=== PATIENT | female | born 1935 | race Two or more races ===

== ENCOUNTER 2019-07-17 12:56 | Inpatient (IN) | payer MEDICARE, OTHER ==
[~2019-07-17] VITALS: Ht 157.5 cm; Wt 58.1 kg
[2019-07-17 13:19] VITALS: BP 114/43
--- NOTE | 2019-07-17 13:23 | NUR ---
ED Nurse Note: CHIQUITA ISABEL [id number] FROM [facility] UNWITNESSED . PT [facility] CALLED [facility]AL[facility] UNKNOWN HX,MEDS,OR ALLERGIES. PT PLACED ON MONITOR BLOOD SENT TO LAB [facility].
[2019-07-17 13:48] LABS: EOSINOPHILS % (AUTO) 0.8 % (0.0-3.0); HEMATOCRIT 36.9 % (37.0-47.0); HEMOGLOBIN 11.9 G/DL (12.0-16.0); LYMPHOCYTES % (AUTO) 27.1 % (20.0-45.0); MEAN CORPUSCULAR VOLUME 98 FL (80-99); MONOCYTES % (AUTO) 8.9 % (1.0-10.0); NEUTROPHILS % (AUTO) 62.2 % (45.0-75.0); PLATELET COUNT 184 K/UL (150-450); RED BLOOD COUNT 3.76 M/UL (4.20-5.40); RED CELL DISTRIBUTION WIDTH 12.3 % (11.6-14.8); WHITE BLOOD COUNT 5.7 K/UL (4.8-10.8)
--- NOTE | 2019-07-17 13:55 | Emergency Room Report ---
History of Present Illness General Chief Complaint: Syncope Source: Patient, Medical Record, EMS Present Illness HPI Patient is 83-year-old female who presented after possible syncopal episode. Patient was found lying on a sidewalk. She apparently stays in a assisted living. Patient was noted to be found on the ground and was unable to get up. Patient reports having some pain to the back of her head. She denies any extremity pain. History is limited by poor historian. Patient does speak Pashto however she speaks primarily Cantonese.She was noted to have occipital hematoma by EMS.She does not recall how she fell. Past medical history is unknown and medications are unknown Allergies: Coded Allergies: No Known Allergies (Unverified , 07/17/19) Patient History Past Medical History: see triage record Past Surgical History: unable to obtain Pertinent Family History: unable to obtain Now: No Reviewed Nursing Documentation: PMH: Agreed; PSxH: Agreed Nursing Documentation-PMH Past Medical History: No History, Except For Hx Hypertension: Yes Review of Systems All Other Systems: limited - Review of systems: Review systems is limited by patient's being a poor historian Physical Exam Vital Signs Date Time Temp Pulse Resp B/P (MAP) Pulse Ox O2 Delivery O2 Flow Rate FiO2 07/17/19 12:55 70 21 86/44 (58) 100 Room Air 07/17/19 13:19 97.4 General Appearance: no apparent distress, alert, Chronically Ill Eyes: bilateral eye PERRL ENT: normal pharynx Neck: limited range of motion Respiratory: lungs clear, normal breath sounds Cardiovascular #1: no edema Gastrointestinal: normal inspection, soft Neurologic: normal inspection, alert, responsive, payment rep III-XII nml as tested, motor strength/tone normal Medical Decision Making Diagnostic Impression: Primary Impression: Generalized weakness Additional Impressions: Dehydration Syncope Head contusion Lactic acid acidosis ER Course Patient is an 83-year-old female presented for increased generalized weakness. Differential diagnosis include was not limited to sepsis, dehydration, heatstroke among others. Because of complexity of patient's case laboratory testing and imaging studies were ordered. Patient was noted to have some evidence of external trauma to her head. There is a evident scalp hematoma noted. CT the head was ordered due to patient's recent trauma. His chest x- ray one view interpreted by me showed normal cardiac size without evident infiltrate. Patient was noted to be somewhat confused. Is unclear if this is the patient's baseline or not. Patient was given IV antibiotics after blood cultures were obtained.She was started on IV fluids. EKG interpreted by me showed normal sinus rhythm without any acute ST or T wave changes. Patient was noted to have improvement in her lactic acid level over time and on reassessment she was noted to have improved cap refill. Patient was discussed with Dr. Knight for inpatient management due to panel physician Laboratory Tests Test 07/17/19 13:14 07/17/19 14:35 07/17/19 15:39 07/17/19 21:40 White Blood Count 5.7 K/UL (4.8-10.8) Red Blood Count 3.76 M/UL (4.20-5.40) L Hemoglobin 11.9 G/DL (12.0-16.0) L Hematocrit 36.9 % (37.0-47.0) L Mean Corpuscular Volume 98 FL (80-99) Mean Corpuscular Hemoglobin 31.6 PG (27.0-31.0) H Mean Corpuscular Hemoglobin Concent 32.3 G/DL (32.0-36.0) Red Cell Distribution Width 12.3 % (11.6-14.8) Platelet Count 184 K/UL (150-450) Mean Platelet Volume 6.2 FL (6.5-10.1) L Neutrophils (%) (Auto) 62.2 % (45.0-75.0) Lymphocytes (%) (Auto) 27.1 % (20.0-45.0) Monocytes (%) (Auto) 8.9 % (1.0-10.0) Eosinophils (%) (Auto) 0.8 % (0.0-3.0) Basophils (%) (Auto) 1.0 % (0.0-2.0) Prothrombin Time 10.3 SEC (9.30-11.50) Prothrombin Time INR 1.0 (0.9-1.1) PTT 26 SEC (23-33) Sodium Level 142 MMOL/L (136-145) Potassium Level 3.8 MMOL/L (3.5-5.1) Chloride Level 107 MMOL/L (98-107) Carbon Dioxide Level 25 MMOL/L (21-32) Anion Gap 10 mmol/L (5-15) Blood Urea Nitrogen 25 mg/dL (7-18) H Creatinine 1.3 MG/DL (0.55-1.30) Estimate Glomerular Filtration Rate mL/min (>60) Glucose Level 182 MG/DL (74-106) H Lactic Acid Level 3.50 mmol/L (0.4-2.0) H 2.10 mmol/L (0.66-2.22) Calcium Level 8.8 MG/DL (8.5-10.1) Total Bilirubin 0.7 MG/DL (0.2-1.0) Aspartate Amino Transferase (AST) 20 U/L (15-37) Alanine Aminotransferase (ALT) 15 U/L (12-78) Alkaline Phosphatase 76 U/L (46-116) Troponin I 0.000 ng/mL (0.000-0.056) 0.000 ng/mL (0.000-0.056) Total Protein 7.1 G/DL (6.4-8.2) Albumin 3.5 G/DL (3.4-5.0) Globulin 3.6 g/dL Albumin/Globulin Ratio 1.0 (1.0-2.7) Urine Color Yellow Urine Appearance Slightly cloudy Urine pH 6 (4.5-8.0) Urine Specific [place] 1.015 (1.005-1.035) Urine Protein 2+ (NEGATIVE) H Urine Glucose (UA) 3+ (NEGATIVE) H Urine Ketones Negative (NEGATIVE) Urine Blood Negative (NEGATIVE) Urine Nitrite Negative (NEGATIVE) Urine Bilirubin Negative (NEGATIVE) Urine Urobilinogen 1 MG/DL (0.0-1.0) H Urine Leukocyte Esterase Negative (NEGATIVE) Urine RBC 0 /HPF (0 - 2) Urine WBC 2-4 /HPF (0 - 2) Urine Squamous Epithelial Cells Many /LPF (NONE/OCC) H Urine Bacteria Few /HPF (NONE) Urine Mucus Moderate /LPF (NONE/OCC) H Pro-B-Type Natriuretic Peptide 86 pg/mL (0-125) Test 07/18/19 03:40 White Blood Count 6.0 K/UL (4.8-10.8) Red Blood Count 3.80 M/UL (4.20-5.40) L Hemoglobin 12.1 G/DL (12.0-16.0) Hematocrit 36.8 % (37.0-47.0) L Mean Corpuscular Volume 97 FL (80-99) Mean Corpuscular Hemoglobin 31.8 PG (27.0-31.0) H Mean Corpuscular Hemoglobin Concent 32.9 G/DL (32.0-36.0) Red Cell Distribution Width 12.0 % (11.6-14.8) Platelet Count 170 K/UL (150-450) Mean Platelet Volume 6.9 FL (6.5-10.1) Neutrophils (%) (Auto) 64.6 % (45.0-75.0) Lymphocytes (%) (Auto) 25.3 % (20.0-45.0) Monocytes (%) (Auto) 7.1 % (1.0-10.0) Eosinophils (%) (Auto) 2.2 % (0.0-3.0) Basophils (%) (Auto) 0.8 % (0.0-2.0) Sodium Level 145 MMOL/L (136-145) Potassium Level 4.0 MMOL/L (3.5-5.1) Chloride Level 109 MMOL/L (98-107) H Carbon Dioxide Level 24 MMOL/L (21-32) Anion Gap 13 mmol/L (5-15) Blood Urea Nitrogen 15 mg/dL (7-18) Creatinine 0.8 MG/DL (0.55-1.30) Estimate Glomerular Filtration Rate mL/min (>60) Glucose Level 148 MG/DL (74-106) H Hemoglobin A1c 7.0 % (4.3-6.0) H Calcium Level 8.8 MG/DL (8.5-10.1) Troponin I 0.000 ng/mL (0.000-0.056) Pro-B-Type Natriuretic Peptide 144 pg/mL (0-125) H Triglycerides Level 135 MG/DL (30-150) Cholesterol Level 208 MG/DL (< 200) H LDL Cholesterol 119 mg/dL (<100) H HDL Cholesterol 60 MG/DL (40-60) Cholesterol/HDL Ratio 3.5 (3.3-4.4) Thyroid Stimulating Hormone (TSH) 0.805 uiU/mL (0.358-3.740) EKG Diagnostic Results Rate: normal Rhythm: NSR ST Segments: no acute changes Last Vital Signs Date Time Temp Pulse Resp B/P (MAP) Pulse Ox O2 Delivery O2 Flow Rate FiO2 07/17/19 13:19 97.4 60 14 114/43 96 Room Air Status: improved Disposition: ADMITTED INPATIENT Condition: Stable Tyshawn Ascencio MD Jul 17, 2019 13:55
[2019-07-17 14:39] LABS: ANION GAP 10 mmol/L (5-15); BLOOD UREA NITROGEN 25 mg/dL (7-18); CALCIUM 8.8 MG/DL (8.5-10.1); CARBON DIOXIDE 25 MMOL/L (21-32); CHLORIDE 107 MMOL/L (98-107); CREATININE 1.3 MG/DL (0.55-1.30); POTASSIUM 3.8 MMOL/L (3.5-5.1); SODIUM 142 MMOL/L (136-145)
--- NOTE | 2019-07-17 14:40 | NUR ---
ED Nurse Note: urine sent
[2019-07-17 14:43] LABS: ALANINE AMINOTRANSFERASE 15 U/L (12-78); ALBUMIN 3.5 G/DL (3.4-5.0); ALKALINE PHOSPHATASE 76 U/L (46-116); ASPARTATE AMINO TRANSFERASE 20 U/L (15-37); BILIRUBIN,TOTAL 0.7 MG/DL (0.2-1.0)
[2019-07-17] MEDS ORDERED: Piperacillin/Tazobactam 3.375 GM in NS 110 ML IVPB ONE (15:00)
--- NOTE | 2019-07-17 15:10 | Diagnostic Imaging Report ---
EXAM: CT Abdomen and Pelvis Without Intravenous Contrast CLINICAL HISTORY: PAIN TECHNIQUE: Axial computed tomography images of the abdomen and pelvis without intravenous contrast. Sagittal and coronal reformatted images were created and reviewed. CTDI is 11.66 mGy and DLP is 614 mGy-cm. One or more of the following dose reduction techniques were used: automated exposure control, adjustment of the mA and/or kV according to patient size, use of iterative reconstruction technique. COMPARISON: No relevant prior studies available. FINDINGS: Lung bases: Unremarkable. No consolidation. No effusions. ABDOMEN: Liver: Unremarkable. Gallbladder and bile ducts: Status post cholecystectomy. No ductal dilation. Pancreas: Unremarkable. No ductal dilation. Spleen: Unremarkable. No splenomegaly. Adrenals: Unremarkable. No mass. Kidneys and ureters: Unremarkable. No obstructing stones. No hydronephrosis. Stomach and bowel: Nonspecific segmental wall thickening involving the distal 5-6 cm of the rectum. Mild diverticulosis in the descending and sigmoid colon without adjacent inflammatory change. No obstruction. PELVIS: Appendix: No findings to suggest acute appendicitis. Bladder: Unremarkable. No stones. Reproductive: Unremarkable as visualized. ABDOMEN and PELVIS: Intraperitoneal space: Unremarkable. No free air. No significant fluid collection. Bones/joints: Multilevel degenerative changes throughout the visualized spine with disc space loss and endplate osteophytes. No acute fracture. No dislocation. Soft tissues: Unremarkable. Vasculature: Atherosclerosis throughout the abdominal aorta and its proximal branches. No abdominal aortic aneurysm. Lymph nodes: No enlarged perirectal lymph nodes identified. IMPRESSION: 1. Nonspecific segmental wall thickening involving the distal 5-6 cm of the rectum. This may be related to proctocolitis versus a rectal mass. Recommend either colonoscopic evaluation or follow-up CT with IV and oral and rectal contrast. 2. No enlarged perirectal lymph nodes identified. 3. Mild diverticulosis in the descending and sigmoid colon without adjacent inflammatory change.
--- NOTE | 2019-07-17 15:14 | Diagnostic Imaging Report ---
EXAM: CT Head Without Intravenous Contrast CLINICAL HISTORY: PAIN TECHNIQUE: Axial computed tomography images of the head/brain without intravenous contrast. CTDI is 70.38 mGy and DLP is 1396.98 mGy-cm. One or more of the following dose reduction techniques were used: automated exposure control, adjustment of the mA and/or kV according to patient size, use of iterative reconstruction technique. Coronal reformatted images were created and reviewed. COMPARISON: No relevant prior studies available. FINDINGS: Brain: Generalized parenchymal volume loss, likely age-related. Periventricular white matter hypodensities. 5 mm hypodensity in the right caudate nucleus. No evidence of acute intracranial hemorrhage. No mass effect or midline shift. Ventricles: Unremarkable. No ventriculomegaly. Bones/joints: Unremarkable. No acute fracture. Soft tissues: Unremarkable. Sinuses: Unremarkable as visualized. No acute sinusitis. Mastoid air cells: Unremarkable as visualized. No mastoid effusion. Vascular: Atherosclerotic calcifications of bilateral vertebral arteries and the cavernous portions of bilateral ICAs. IMPRESSION: 1. No acute intracranial findings. 2. 5 mm hypodensity in the right caudate nucleus, likely a remote lacunar infarct. 3. Periventricular white matter hypodensities, likely related to chronic small vessel disease changes. 4. Generalized cerebral parenchymal volume loss, likely age-related.
--- NOTE | 2019-07-17 15:17 | Diagnostic Imaging Report ---
EXAM: CT Cervical Spine Without Intravenous Contrast CLINICAL HISTORY: PAIN TECHNIQUE: Axial computed tomography images of the cervical spine without intravenous contrast. Sagittal and coronal reformatted images were created and reviewed. CTDI is 8.47 mGy and DLP is 193.99 mGy-cm. One or more of the following dose reduction techniques were used: automated exposure control, adjustment of the mA and/or kV according to patient size, use of iterative reconstruction technique. COMPARISON: No relevant prior studies available. FINDINGS: Vertebrae: Unremarkable. No visible displaced fracture. Cervical body heights are preserved. The atlantodens interval appears unremarkable. Discs/spinal canal/neural foramina: Multilevel degenerative changes throughout the cervical spine, with disc space loss, endplate ossified, and facet and uncovertebral arthrosis. Associated varying degrees of osseous stenosis of the central canal and neural foramina. Soft tissues: Unremarkable. IMPRESSION: 1. No evidence of acute fracture or malalignment in the cervical spine. 2. Multilevel degenerative changes throughout the cervical spine.
[2019-07-17 15:21] LABS: APPEARANCE,URINE SLIGHTLY CLOUDY; BILIRUBIN, URINE NEGATIVE (NEGATIVE); GLUCOSE, URINE (UA) 3+ (NEGATIVE); KETONES,URINE NEGATIVE (NEGATIVE); LEUKOCYTE ESTERASE ,URINE NEGATIVE (NEGATIVE); NITRITE,URINE NEGATIVE (NEGATIVE); PH,URINE 6 (4.5-8.0); PROTEIN,URINE 2+ (NEGATIVE); UROBILINOGEN,URINE 1 MG/DL (0.0-1.0)
[2019-07-17 15:29] VITALS: BP 110/54
[2019-07-17 15:29] LABS: COLOR,URINE YELLOW
--- NOTE | 2019-07-17 15:29 | NUR ---
ED Nurse Note: REPORT GIVEN TO HOLA CORTES
--- NOTE | 2019-07-17 15:37 | NUR ---
ED Nurse Note: reflex drawn and sent
--- NOTE | 2019-07-17 15:44 | NUR ---
ED Nurse Note: abx up infusing. pt up to floor with charge and tech
--- NOTE | 2019-07-17 15:50 | NUR ---
NURSE NOTES: Received bedside report from Pastora Robin RN. Pt. transferred from [facility] to bed. A/O x 3-4 forgetful at times. No sign of distress. Denies pain at present. IV site at right FA #[id number]. in placed patent/intact. Body check done with CN. Noted skin intact. Bed in low position, locked. Call light within reach. Will cont. to monitor.
--- NOTE | 2019-07-17 15:50 | NUR ---
Patient received at 1550 not registered at SDU. Called [facility] and Oral And Maxillofacial Surgeon times 3 times and patient was admitted and registered exactly at SDU 1858.
[2019-07-17 16:00] VITALS: BP 144/70
--- NOTE | 2019-07-17 16:04 | Diagnostic Imaging Report ---
EXAM: XR Chest, 1 View CLINICAL HISTORY: Shortness of breath TECHNIQUE: Frontal view of the chest. COMPARISON: No relevant prior studies available. FINDINGS: Lungs: Mildly increased interstitial markings. The lungs are otherwise clear without focal consolidation. Pleural space: Unremarkable. The costophrenic angles are sharp. No visible pneumothorax. Heart: Mild cardiomegaly. Mediastinum: Unremarkable. Bones/joints: Unremarkable. Vasculature: Atherosclerotic calcifications are noted within the aortic arch. Tubes, lines and devices: Telemetry leads overlie the thorax. IMPRESSION: 1. Mildly increased interstitial markings. This is nonspecific but may suggest mild pulmonary vascular congestion or a mild interstitial pneumonitis. No focal consolidation. 2. Mild cardiomegaly.
--- NOTE | 2019-07-17 19:20 | NUR ---
NURSE NOTES: Received patient from HOLA Bautista. Will contact Dr. Knight for admission orders and initiate plan of care. Patient is stable.
--- NOTE | 2019-07-17 19:23 | NUR ---
HAND-OFF: Report given to Sanchez RN. Pt. remain stable.
--- NOTE | 2019-07-17 19:38 | NUR ---
NURSE NOTES: Call [facility] to attempt to obtain information about patient. Security states that all offices are closed by 1700 and that only securities are there at the moment until the next morning and to call back then. Will continue to follow up.
[2019-07-17 20:00] VITALS: BP 157/72
[2019-07-17] MEDS ORDERED: HYDROcodone/Acetamin 5/325 tab ORAL PRN (20:30)
--- NOTE | 2019-07-17 21:07 | Cardiology Progress Note ---
Assessment/Plan Assessment/Plan The patient is seen and examined, full consult note is dictated. Objective Last 24 Hour Vital Signs Date Time Temp Pulse Resp B/P (MAP) Pulse Ox O2 Delivery O2 Flow Rate FiO2 07/17/19 20:00 97.9 72 16 157/72 (100) 99 07/17/19 16:33 Room Air 07/17/19 16:00 95.6 68 20 144/70 (94) 97 07/17/19 15:55 122/86 07/17/19 15:29 98.6 60 16 110/54 97 Room Air 07/17/19 13:19 97.4 60 14 114/43 96 Room Air 07/17/19 12:55 70 21 86/44 (58) 100 Room Air Laboratory Tests Test 07/17/19 13:14 07/17/19 14:35 07/17/19 15:39 White Blood Count 5.7 K/UL (4.8-10.8) Red Blood Count 3.76 M/UL (4.20-5.40) L Hemoglobin 11.9 G/DL (12.0-16.0) L Hematocrit 36.9 % (37.0-47.0) L Mean Corpuscular Volume 98 FL (80-99) Mean Corpuscular Hemoglobin 31.6 PG (27.0-31.0) H Mean Corpuscular Hemoglobin Concent 32.3 G/DL (32.0-36.0) Red Cell Distribution Width 12.3 % (11.6-14.8) Platelet Count 184 K/UL (150-450) Mean Platelet Volume 6.2 FL (6.5-10.1) L Neutrophils (%) (Auto) 62.2 % (45.0-75.0) Lymphocytes (%) (Auto) 27.1 % (20.0-45.0) Monocytes (%) (Auto) 8.9 % (1.0-10.0) Eosinophils (%) (Auto) 0.8 % (0.0-3.0) Basophils (%) (Auto) 1.0 % (0.0-2.0) Prothrombin Time 10.3 SEC (9.30-11.50) Prothromb Time International Ratio 1.0 (0.9-1.1) Activated Partial Thromboplast Time 26 SEC (23-33) Sodium Level 142 MMOL/L (136-145) Potassium Level 3.8 MMOL/L (3.5-5.1) Chloride Level 107 MMOL/L (98-107) Carbon Dioxide Level 25 MMOL/L (21-32) Anion Gap 10 mmol/L (5-15) Blood Urea Nitrogen 25 mg/dL (7-18) H Creatinine 1.3 MG/DL (0.55-1.30) Estimat Glomerular Filtration Rate mL/min (>60) Glucose Level 182 MG/DL (74-106) H Lactic Acid Level 3.50 mmol/L (0.4-2.0) H 2.10 mmol/L (0.66-2.22) Calcium Level 8.8 MG/DL (8.5-10.1) Total Bilirubin 0.7 MG/DL (0.2-1.0) Aspartate Amino Transf (AST/SGOT) 20 U/L (15-37) Alanine Aminotransferase (ALT/SGPT) 15 U/L (12-78) Alkaline Phosphatase 76 U/L (46-116) Troponin I 0.000 ng/mL (0.000-0.056) Total Protein 7.1 G/DL (6.4-8.2) Albumin 3.5 G/DL (3.4-5.0) Globulin 3.6 g/dL Albumin/Globulin Ratio 1.0 (1.0-2.7) Urine Color Yellow Urine Appearance Slightly cloudy Urine pH 6 (4.5-8.0) Urine Specific [place] 1.015 (1.005-1.035) Urine Protein 2+ (NEGATIVE) H Urine Glucose (UA) 3+ (NEGATIVE) H Urine Ketones Negative (NEGATIVE) Urine Blood Negative (NEGATIVE) Urine Nitrite Negative (NEGATIVE) Urine Bilirubin Negative (NEGATIVE) Urine Urobilinogen 1 MG/DL (0.0-1.0) H Urine Leukocyte Esterase Negative (NEGATIVE) Urine RBC 0 /HPF (0 - 2) Urine WBC 2-4 /HPF (0 - 2) Urine Squamous Epithelial Cells Many /LPF (NONE/OCC) H Urine Bacteria Few /HPF (NONE) Urine Mucus Moderate /LPF (NONE/OCC) H Augustin Roldan MD Jul 17, 2019 21:07
[2019-07-17] MEDS: D5NS 1,000 ML IV SCH (21:35)
[2019-07-17] MEDS: Heparin 5000 units/ml inj SUBQ SCH (21:37)
[2019-07-17] MEDS ORDERED: Vancomycin 1gm/D5W 275ml IVPB ONE ×2 (22:00)
--- NOTE | 2019-07-17 23:45 | Consultation ---
DATE OF CONSULTATION: 07/17/2019 CARDIOLOGY CONSULTATION CONSULTING PHYSICIAN: Augustin Roldan M.D. REFERRING PHYSICIAN: Jacques Knight M.D. REASON FOR CONSULTATION: Management of syncope. HISTORY OF PRESENT ILLNESS: The patient is a very pleasant 83-year-old ____ lady who apparently sustained an episode of syncope and was brought in to this facility for further evaluation and management of this condition. She was found lying on the sidewalk of the assisted living facility and was unable to get up. Apparently, the patient hit back of her head, leading to a hematoma. In the emergency department, initial blood pressure was 86/44 millimeter of mercury and pulse rate of 70. A 12-lead electrocardiogram was significant for sinus rhythm, but no acute ischemic feature was found. QT interval was within normal limits at 444 milliseconds. Initial laboratory finding was essentially confirming possible prerenal azotemia due to hypovolemia. There is slight hypernatremia. It is not clear the blood pressure medication that the patient uses at the assisted living facility. Her initial troponin I level was 0. The patient was admitted to [facility] for further evaluation and management of syncope. Cardiology consultation was made at request of Dr. Knight. PAST MEDICAL HISTORY: Hypertension. PAST SURGICAL HISTORY: None. ALLERGIES: No known drug allergies. REVIEW OF SYSTEMS: HEENT: Denies any headache, although a bump at the back of her head is tender. No blurred vision or diplopia. CONSTITUTIONAL: Denies any fever, chills, night sweats, or weight loss. CARDIOVASCULAR: Denies any chest pain, shortness breath, PND, orthopnea, or leg swelling. PULMONARY: Denies any cough, hemoptysis, or wheezing. GASTROINTESTINAL: Denies any nausea, vomiting, diarrhea, constipation, abdominal pain, or GI bleed. GENITOURINARY: Denies any hematuria, dysuria, or incontinence. CARDIOVASCULAR: Denies any chest pain, shortness of breath, PND, or orthopnea. She had loss of consciousness, which was unwitnessed. NEUROLOGY: Denies any signs of lateralization, sensory deficit, altered speech, or motor dysfunction. MEDICATIONS: List of medication, she apparently on antihypertensive medication. The name of this is unknown at this time. SOCIAL HISTORY: Denies any tobacco, alcohol, or illicit drug use. PHYSICAL EXAMINATION: VITAL SIGNS: Blood pressure at time of arrival to the hospital was 86/44, respirations 21, pulse of 70, temperature 97.4 degrees Fahrenheit, and O2 saturation 100% on room air. GENERAL: This is a very unfortunate 83-year-old female, seen in Cardiology, in no apparent respiratory distress. Alert and oriented x4. HEENT: Atraumatic and normocephalic. Anicteric. Pupils are equal, round, and reactive to light and accommodation. Extraocular muscles intact. NECK: JVP less than 5 cm. No carotid bruit. Carotid upstroke is 2+ bilaterally. CARDIOVASCULAR: Normal S1 and S2. Regular rate and rhythm. No murmurs, gallops, or rubs. PMI is at fourth intercostal space in the midclavicular line. LUNGS: Clear to auscultation bilaterally. ABDOMEN: Soft, nontender, and nondistended. No hepatosplenomegaly, Positive bowel sounds. EXTREMITIES: No evidence of edema, clubbing, or cyanosis. LABORATORY FINDINGS: Sodium 142, potassium 3.8, chloride 107, bicarbonate 25, BUN 25, creatinine 1.3, glucose 192, calcium 8.8, and troponin I 0. WBC 5.7, hemoglobin 11.9, hematocrit 36.9, and platelet count is 184,000. INR is 1.0. CT of the head showed possible remote lacune infarct in the right caudate nucleus, otherwise no acute intracranial hemorrhage or mass effect. Also, there is periventricular white matter hypodensity due to chronic small vessel disease. Chest x-ray, mild increased interstitial marking, nonspecific, might suggest mild pulmonary vascular congestion or interstitial pneumonitis, mild cardiomegaly. ASSESSMENT/PLAN: The patient is a very unfortunate 83-year-old female, seen in cardiology consultation. 1. Syncope, unwitnessed. ____ to have the hypovolemia as the culprit for this in view of the elevated BUN and creatinine ratio at about 20. The patient requires to be well-hydrated. We will order brain natriuretic peptide to rule out congestive heart failure in view of the result of chest x-ray which showed some evidence of increased interstitial marking. I would wait for the results of 2D echocardiography which will be done tomorrow morning. I would like to obtain orthostatic vitals as well as carotid duplex study. 2. and diagnostic decision will be based on results of the above test. 3. History of hypertension. We would like to place a hold on possible diuretics. 4. We will continue managing the blood pressure with low-dose amlodipine. I would like to thank Dr. Knight for allowing me to participate in the care of this patient. Augustin Roldan M.D. DR: JOO JOB#: [id number] CC:
[2019-07-18] VITALS: BP 107/75
[2019-07-18 04:00] VITALS: BP 144/78
--- NOTE | 2019-07-18 04:13 | NUR ---
NURSE NOTES: Patient is asking for food and is currently on a NPO diet; ST eval are not usually done on a holiday weekday. Patient is alert and oriented x3-4. Was able to question about home diet to assess whether or not she is able to have food during the day. She states that is able to chew solid meat, mashed foods are too mushy and chopped foods are too chewy. She also states that she is able to eat solid vegetables and meat like a chicken leg. Will suggest a diet change to Dr. Knight in the morning.
[2019-07-18 05:23] LABS: BASOPHILS % (AUTO) 0.8 % (0.0-2.0); EOSINOPHILS % (AUTO) 2.2 % (0.0-3.0); HEMATOCRIT 36.8 % (37.0-47.0); HEMOGLOBIN 12.1 G/DL (12.0-16.0); LYMPHOCYTES % (AUTO) 25.3 % (20.0-45.0); MEAN CORPUSCULAR VOLUME 97 FL (80-99); MONOCYTES % (AUTO) 7.1 % (1.0-10.0); NEUTROPHILS % (AUTO) 64.6 % (45.0-75.0); PLATELET COUNT 170 K/UL (150-450)
[2019-07-18 06:15] LABS: ANION GAP 13 mmol/L (5-15); BLOOD UREA NITROGEN 15 mg/dL (7-18); CALCIUM 8.8 MG/DL (8.5-10.1); CARBON DIOXIDE 24 MMOL/L (21-32); CHLORIDE 109 MMOL/L (98-107); CHOLESTEROL 208 MG/DL (< 200); CREATININE 0.8 MG/DL (0.55-1.30); HDL CHOLESTEROL 60 MG/DL (40-60); SODIUM 145 MMOL/L (136-145); TRIGLYCERIDES 135 MG/DL (30-150)
--- NOTE | 2019-07-18 07:11 | NUR ---
HAND-OFF: Report given to Kylie SIMENTAL.
--- NOTE | 2019-07-18 07:15 | NUR ---
NURSE NOTES: Received bedside report from Sanchez RN. Pt. in bed, awake, a/o x 3-4. No sign of distress. On R.A. Denies pain at present. IV site at right FA #[id number]. in placed patent/intact. Pleasant and cooperative. Fall precaution observed. Bed alarm on. Bed in low position, locked. Call light within reach. Will cont. to monitor.
[2019-07-18 08:00] VITALS: BP 133/61
[2019-07-18] MEDS: D5NS 1,000 ML IV SCH ×2 (09:12→21:13)
[2019-07-18] MEDS: Heparin 5000 units/ml inj SUBQ SCH ×2 (09:15→21:00)
--- NOTE | 2019-07-18 11:20 | NUR ---
NURSE NOTES: Pt. called and RN went to see the pt. And pt. showed RN that she pulled out IV and pt. told RN "no more". And pt telling RN she is going home. Noted pt. pulled out cardiac care nurse and pt. dressed up. And pt. started to grab her walker. RN followed pt.
[2019-07-18] MEDS: NovoLOG Insulin Flexpen SUBQ SCH ×3 (11:30→21:00)
--- NOTE | 2019-07-18 12:00 | NUR ---
NURSE NOTES: Pt. still continue to wander around and RN cont. to follow pt. Pt. refused accu-check. Security present also.
--- NOTE | 2019-07-18 12:30 | NUR ---
NURSE NOTES: Called Dr. Knight notify him about pt. getting agitated, hitting RN and wandering around and got orders for psych consult (Dr. Torres) and 1:1 sitter. Notify CN and warehouse stocker.
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
--- NOTE | 2019-07-18 14:00 | NUR ---
NURSE NOTES: [facility] and spoke with Estephania (professional fighter). And told RN if she will get d/c back pt. ok to come back at the facility and Estephania said she is on room #1704. And address is [address] [place] [id number]. Informed CN and transfer and pumphouse operator.
--- NOTE | 2019-07-18 14:11 | Consultation ---
Consult Note Consult Note NEUROLOGY CONSULTATION: Full note dictated #[id number] 83-year-old, right-handed, [place] Islander lady who does have a past history of hypertension and diabetes mellitus. On 07/17/2019 she was found outside her assisted living facility unconscious. She had apparently passed out and was unable to get up on her own. ON EXAM: Problems with orientation, memory, VSF, HCF, language. Mild right NLF flat. Globally absent DTRs Minimally wide based stance and gait. IMPRESSION: Syncopal episode due to volume depletion. Underlying dementia. 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 REC: Keep well hydrated. BP/BS control. W/U for treatable causes of cognitive dysfunction. Observe. Donovan Shannon M.D., M.S.P.H. Donovan Shannon MD Jul 18, 2019 14:11
--- NOTE | 2019-07-18 16:30 | History and Physical Report ---
DATE OF ADMISSION: 07/17/2019 SOURCE OF INFORMATION: Patient and EMR. HISTORY OF PRESENT ILLNESS: The patient is an 83-year-old female. The patient reported that [facility] The patient reported that she passed out. She does not have any recollection about the incident. Initial evaluation in the emergency room shows the patient had a low blood pressure of systolic blood pressure of 80. The patient denies having any chest pain, any shortness of breath, any diarrhea, constipation, fever, or chills. REVIEW OF SYSTEMS: All 14 elements of review of systems reviewed. Pertinent positive and negative as above. HOME MEDICATIONS: Could not be obtained. CURRENT HOSPITAL MEDICATIONS: Including vancomycin, amlodipine. SOCIAL HISTORY: The patient reported she is single. Denies history of illicit drug abuse, smoking, or alcohol abuse. She lives in a [facility]. ALLERGIES: NKDA. PHYSICAL EXAMINATION: VITAL SIGNS: Blood pressure is 80/50, temperature 98.2, pulse oximetry 98% on room air, pulse rate 70, respiratory rate 20. HEAD AND NECK: Atraumatic, normocephalic. CHEST: Clear to auscultation. HEART: S1, S2. Regular rate and rhythm. ABDOMEN: Soft. No organomegaly. MUSCULOSKELETAL: No gross lateralized motor deficit. NEUROLOGY: Awake, alert, oriented x3. IMAGING: Head CT scan dated 07/17/2019, positive for history of lacunar infarct. Cervical spine, abdominal and pelvis CT scan are reviewed. ASSESSMENT AND PLAN: 1. Acute encephalopathy. 2. Differential diagnoses including acute CVA, cardiovascular deficiencies. 3. Diabetes type 2. 4. CVA - history of. 5. Anemia. 6. Psychiatric disorder. PLAN OF CARE: Psychiatrist, Cardiology consulted. We will start the patient on sliding scale insulin. We will optimize medications. A 2D echo, carotid duplex requested. Jacques Knight M.D. DR: KIERRA JOB#: [id number] CC:
--- NOTE | 2019-07-18 18:45 | Consultation ---
DATE OF CONSULTATION: 07/18/2019 NEUROLOGY CONSULTATION CONSULTING PHYSICIAN: Dnoovan Shannon M.D. REFERRING PHYSICIAN: Jacques Knight M.D. HISTORY: Ms. Leandro Villarreal is an 83-year-old, right-handed, [place] lady who does have a nebulous past history of hypertension and diabetes mellitus. She was apparently found down outside her assisted living facility unconscious on 07/17/2019. She had apparently passed out and was unable to get up on her own. The paramedics were called in and she was brought into the [facility] emergency room. She has since been evaluated by Dr. Augustin Roldan who felt that she had a syncopal episode most probably related to volume depletion. Her postural blood pressure dropped by 20 mmHg. At this point in time, the patient feels quite well. She denies any weakness on one side or the other, numbness on one side or the other, problems with speech, problems with language, problems with vision, but does say that her memory has been poor for numerous years. PAST MEDICAL HISTORY: Significant for high blood pressure and diabetes mellitus. FAMILY HISTORY: Nothing significant as per the patient. PERSONAL HISTORY: Home: She lives in a board and retirement. 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 Habits: She denies use of alcohol, tobacco, or illicit drugs. PRESENT MEDICATIONS: Vancomycin, insulin, amlodipine, heparin for DVT prophylaxis, Tylenol p.r.n. [place] p.r.n., clonidine p.r.n. PHYSICAL EXAMINATION: GENERAL: She is a well developed, well nourished, but lean [place] lady, sitting up on her walker seat, in no acute distress. VITAL SIGNS: Pulse 63/minute, blood pressure 133/61 mmHg, respirations 19/minute, temperature 96.7 degrees Fahrenheit. HEAD: Normocephalic and atraumatic. EENT: Examination benign. NECK: No neck rigidity was observed. NEUROLOGICAL EXAMINATION: MENTAL STATUS EXAMINATION: She was awake and alert. She was oriented to self only. She did not know the name of the hospital, date, month, or year. She was able to recall 3/3 words immediately, but could only remember 1/3 words in 1 minute and 3 minutes even on the second trial. She was unable to tell me who the present President was and who prior Presidents were. Her mathematical skills were impaired. Her visuospatial function was also impaired. SPEECH: She had no dysarthria. LANGUAGE: She had anomia for low and mid frequency words. However, it should be noted that Slovak is her second language and her educational level is quite low. CRANIAL NERVE EXAMINATION: II: The visual capone were intact on confrontation testing. III, IV & : The external ocular movements were full and the pupils 3 mm in diameter, equal, round, regular, and reactive to light. V: She had normal facial sensations, and the temporales, masseters, and pterygoids functioned normally. VII: She had flattening of the right nasolabial fold. However both sides of the face moved relatively well when she was made to smile, wrinkle her forehead, and blow her cheeks out. VIII: She was able to hear well bilaterally and had no nystagmus. IX: The palate moved symmetrically on phonation. X: She had no hoarseness of voice. XI: The sternocleidomastoids and trapezii functioned normally. XII: The tongue was in the midline without any fasciculations or atrophy. MOTOR SYSTEM: The tone was normal in all four extremities. Examination of muscle mass revealed no focal wasting. Examination of power revealed G 5/5 power in all muscle groups tested. SENSORY EXAMINATION: She had intact sensations to pinprick, light touch, and graphesthesia. COORDINATION: She performed well on lyhqgd-bw-vzcw and bopt-dh-bqoo testing. On Romberg test, she swayed, but did not fall to one side or the other. REFLEXES: 0 at the biceps, triceps, brachioradialis, knees, and ankles. The plantar responses were flexor bilaterally. STANCE: She had a minimally wide-based, but stable stance. GAIT: She walked with a minimally wide-based, but stable gait. DIAGNOSTIC IMPRESSION: 1. Ms. Leandro Villarreal is an 83-year-old, right-handed, [place] lady who has a prior history of hypertension and diabetes mellitus. On 07/17/2019, she was apparently found outside her assisted living facility unconscious. She had apparently passed out and was unable to get up on her own. 2. On neurological examination, at this time, she is quite oblivious as to what happened yesterday and brought her into the hospital. She has significant problems with orientation, recent and remote memory, visuospatial function, higher cognitive function, and language. She also has flattening of the right nasolabial fold, globally absent deep tendon reflexes, a minimally wide-based stance, and a minimally wide-based gait. 3. 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 In addition, an old right basal ganglion lacune was also noted. 4. Her laboratory tests obtained thus far have revealed that she was mildly anemic with a hemoglobin of 11.9 G. The chemistry panel on admission revealed a BUN elevated at 25 with a creatinine of 1.3. Her bood glucose was elevated at 182. Lactic acid was elevated at 3.5. Her BNP was elevated at 144. Her TSH was normal at 0.80. Her urinalysis was relatively benign with negative leukocyte esterase, 0 red blood cells, and 2-4 white blood cells per HPF. 5. The patient's history, neurological examination, laboratory data, and imaging studies are most consistent with a syncopal episode most probably related to volume depletion. 6. The patient does have significant cognitive problems, which are most probably related to a primary degenerative process. RECOMMENDATIONS: 1. Agree with management thus far. 2. The patient should be kept well hydrated especially on warm days. 3. Her blood pressures and blood sugars should be kept under control. 4. She should be worked up thoroughly for treatable causes of cognitive dysfunction. 5. Her activity level should be increased. 6. Depending on the results of the above-mentioned tests, further recommendations will be given. Thank you for entrusting me with the care of Ms.Lieng Villarreal. I shall follow her with you. Donovan Shannon M.D., M.S.P.H. DR: SHANNON JOB#: [id number] JESENIA
--- NOTE | 2019-07-18 19:03 | Cardiology Progress Note ---
Assessment/Plan Assessment/Plan 1. Syncope, unwitnessed, positive orthostatics, continue D5NS at 80cc/hr, 2D echocardiography shows normal LVEF at 60%. 2. History of hypertension, continue amlodipine. Subjective Subjective Sinus rhythm at rate of 81. Objective Last 24 Hour Vital Signs Date Time Temp Pulse Resp B/P (MAP) Pulse Ox O2 Delivery O2 Flow Rate FiO2 07/18/19 11:51 81 07/18/19 09:12 63 133/61 07/18/19 09:00 Room Air 07/18/19 08:00 96.7 63 19 133/61 (85) 97 07/18/19 07:38 64 07/18/19 04:00 96.6 78 18 144/78 (100) 98 07/18/19 03:54 63 07/18/19 00:00 96.9 72 18 107/75 (86) 99 07/17/19 23:30 71 07/17/19 21:00 Room Air 07/17/19 20:00 97.9 72 16 157/72 (100) 99 07/17/19 19:37 74 Intake and Output 07/17/19 07/18/19 19:00 07:00 Intake Total 1000 ml 833.1 ml Balance 1000 ml 833.1 ml IV Total 1000 ml 833.1 ml # Voids 7 2D Echo: LVEF 60%, Mild MR, Grade I LVDD, RVSP 37 mmHg Laboratory Tests Test 07/17/19 21:40 07/18/19 03:40 07/18/19 10:15 Troponin I 0.000 ng/mL (0.000-0.056) 0.000 ng/mL (0.000-0.056) 0.000 ng/mL (0.000-0.056) White Blood Count 6.0 K/UL (4.8-10.8) Red Blood Count 3.80 M/UL (4.20-5.40) L Hemoglobin 12.1 G/DL (12.0-16.0) Hematocrit 36.8 % (37.0-47.0) L Mean Corpuscular Volume 97 FL (80-99) Mean Corpuscular Hemoglobin 31.8 PG (27.0-31.0) H Mean Corpuscular Hemoglobin Concent 32.9 G/DL (32.0-36.0) Red Cell Distribution Width 12.0 % (11.6-14.8) Platelet Count 170 K/UL (150-450) Mean Platelet Volume 6.9 FL (6.5-10.1) Neutrophils (%) (Auto) 64.6 % (45.0-75.0) Lymphocytes (%) (Auto) 25.3 % (20.0-45.0) Monocytes (%) (Auto) 7.1 % (1.0-10.0) Eosinophils (%) (Auto) 2.2 % (0.0-3.0) Basophils (%) (Auto) 0.8 % (0.0-2.0) Sodium Level 145 MMOL/L (136-145) Potassium Level 4.0 MMOL/L (3.5-5.1) Chloride Level 109 MMOL/L (98-107) H Carbon Dioxide Level 24 MMOL/L (21-32) Anion Gap 13 mmol/L (5-15) Blood Urea Nitrogen 15 mg/dL (7-18) Creatinine 0.8 MG/DL (0.55-1.30) Estimat Glomerular Filtration Rate mL/min (>60) Glucose Level 148 MG/DL (74-106) H Hemoglobin A1c 7.0 % (4.3-6.0) H Calcium Level 8.8 MG/DL (8.5-10.1) Pro-B-Type Natriuretic Peptide 144 pg/mL (0-125) H Triglycerides Level 135 MG/DL (30-150) Cholesterol Level 208 MG/DL (< 200) H LDL Cholesterol 119 mg/dL (<100) H HDL Cholesterol 60 MG/DL (40-60) Cholesterol/HDL Ratio 3.5 (3.3-4.4) Thyroid Stimulating Hormone (TSH) 0.805 uiU/mL (0.358-3.740) Total Protein (PEP) Pending Albumin (PEP) Pending Globulin (PEP) Pending Albumin/Globulin Ratio Pending Lgenl-4-Lldhdtucj Pending Wljih-9-Iibrcxyvb Pending Beta Globulins Pending Beta Gamma Globulin Pending PEP Abnormal Protein Bands Pending Protein Electrophoresis Interpret Pending Vitamin B12 Level 136 PG/ML (193-986) L Vitamin D 25-Hydroxy Pending 25-Hydroxy Vitamin D2 Pending 25-Hydroxy Vitamin D3 Pending Folate 17.4 NG/ML (8.6-58.9) Rapid Plasma Reagin Pending Objective HEENT: Atraumatic and normocephalic. Anicteric. Pupils are equal, round, and reactive to light and accommodation. Extraocular muscles intact. NECK: JVP less than 5 cm. No carotid bruit. Carotid upstroke is 2+ bilaterally. CARDIOVASCULAR: Normal S1 and S2. Regular rate and rhythm. No murmurs, gallops, or rubs. PMI is at fourth intercostal space in the midclavicular line. LUNGS: Clear to auscultation bilaterally. ABDOMEN: Soft, nontender, and nondistended. No hepatosplenomegaly, Positive bowel sounds. EXTREMITIES: No evidence of edema, clubbing, or cyanosis. Augustin Roldan MD Jul 18, 2019 19:03
--- NOTE | 2019-07-18 19:20 | NUR ---
NURSE NOTES: Received patient from HOLA Bautista. Patient is sitting quietly at the nurse's station with sitters and RN. Will continue plan of care.
--- NOTE | 2019-07-18 19:25 | NUR ---
HAND-OFF: Report given to Nichole SIMENTAL. Pt. remain stable. With med/surg. transfer order. Pt. with one on one sitter. Remain calmed.
[2019-07-18 20:00] VITALS: BP 151/86
--- NOTE | 2019-07-18 20:19 | NUR ---
NURSE NOTES: Spoke with Carlos the on site wastewater systems technician. Explained that the patient is very restless and has been combative and agitated that an EEG is not able to be performed today due to that the patient will not be able to lay flat for about 40 minutes. She refused to get into bed. He will call back tomorrow for her updated condition to see if procedure can be done.
[2019-07-18] MEDS ORDERED: Vancomycin 500mg/D5W 110ml IVPB SCH ×2 (22:00)
[2019-07-19] MEDS: NovoLOG Insulin Flexpen SUBQ SCH ×4 (06:30→20:30)
--- NOTE | 2019-07-19 07:18 | NUR ---
HAND-OFF: Report given to Akilah Cardona RN.
--- NOTE | 2019-07-19 07:20 | NUR ---
NURSE NOTES: Report received from HOLA Varela. Pt is alert and awake and oriented x 2-3. Pt can be impulsive and aggressive at times. Sitter at bedside. Walker at bedside. Sinus rhythm on cardiac monitor technician. On RA. Denies pain or discomfort. No IV access. MD aware. Pt refused to take VS. Bed in lowest position. Side rails up x 3. Bed exit alarm on. Will continue to monitor.
[2019-07-19 08:00] VITALS: BP 126/83
--- NOTE | 2019-07-19 08:26 | NUR ---
TRANSFER TO FLOOR: Patient transferred to HOLA Arreguin. Report given to HOLA Arreguin. Belongings and medications given to HOLA Arreguin. Addendum: 07/19/19 at 0849 by DASIA SOLIMAN RN RN TRANSFER TO FLOOR: Patient transferred to [facility]-2, 4E. Report given to HOLA Arreguin. Belongings and medications given to HOLA Arreguin.
--- NOTE | 2019-07-19 08:27 | NUR ---
NURSE NOTES: received patient A/A/Ox2, able to verbalize needs. sitter @ bedside for safety reasons. patient has her own walker @ bedside. instructed to press call light for assistance. patient appeared calm and comfortable @ this time. had breakfast prior transfer from SDU. no acute resp distress noted. no pain/discomfort noted. siderails are up. bed is in lock mode and bed alarm activated. personal belongings reviewed and noted. No IV access noted. will cont to monitor,.
[2019-07-19 08:38] LABS: BASOPHILS % (AUTO) 1.1 % (0.0-2.0); EOSINOPHILS % (AUTO) 2.6 % (0.0-3.0); HEMATOCRIT 37.5 % (37.0-47.0); HEMOGLOBIN 12.4 G/DL (12.0-16.0); LYMPHOCYTES % (AUTO) 24.4 % (20.0-45.0); MEAN CORPUSCULAR VOLUME 96 FL (80-99); MONOCYTES % (AUTO) 8.7 % (1.0-10.0); NEUTROPHILS % (AUTO) 63.2 % (45.0-75.0); PLATELET COUNT 180 K/UL (150-450); RED BLOOD COUNT 3.91 M/UL (4.20-5.40); RED CELL DISTRIBUTION WIDTH 12.3 % (11.6-14.8)
[2019-07-19] MEDS: D5NS 1,000 ML IV SCH ×2 (08:45→21:15)
[2019-07-19 08:52] LABS: ANION GAP 11 mmol/L (5-15); BLOOD UREA NITROGEN 14 mg/dL (7-18); CALCIUM 9.2 MG/DL (8.5-10.1); CARBON DIOXIDE 25 MMOL/L (21-32); CHLORIDE 107 MMOL/L (98-107); SODIUM 143 MMOL/L (136-145)
[2019-07-19] MEDS: Heparin 5000 units/ml inj SUBQ SCH ×2 (08:57→20:20)
--- NOTE | 2019-07-19 10:15 | General Progress Note ---
Assessment/Plan Assessment/Plan: S: I want to go home O: seems confused but comfortable PHYSICAL EXAMINATION:HEAD AND NECK: Atraumatic, normocephalic. CHEST: Clear to auscultation. HEART: S1, S2. Regular rate and rhythm. ABDOMEN: Soft. No organomegaly. MUSCULOSKELETAL: No gross lateralized motor deficit. NEUROLOGY: Awake, alert, oriented x3. Meds and Labs: Dated Jul 19, reviewed and reconciled in the chart ASSESSMENT AND PLAN: 1. Acute encephalopathy. 2. Differential diagnoses including acute CVA, cardiovascular deficiencies. 3. Diabetes type 2. 4. CVA - history of. 5. Anemia. 6. Psychiatric disorder. Plan: Notes from Neurology reviewed Subjective Allergies: Coded Allergies: No Known Allergies (Unverified , 07/17/19) Objective Last 24 Hour Vital Signs Date Time Temp Pulse Resp B/P (MAP) Pulse Ox O2 Delivery O2 Flow Rate FiO2 07/19/19 08:52 71 126/83 07/19/19 08:26 Room Air 07/19/19 08:00 Room Air 07/19/19 08:00 98.5 71 18 126/83 (97) 99 07/18/19 21:00 Room Air 07/18/19 20:00 93 151/86 (107) 07/18/19 11:51 81 Intake and Output 07/18/19 07/19/19 19:00 07:00 Intake Total 200 ml 250 ml Output Total 300 ml Balance -100 ml 250 ml Intake Oral 120 ml 250 ml IV Total 80 ml Output Urine Total 300 ml # Voids 2 Laboratory Tests 07/18/19 10:15: Troponin I 0.000, Total Protein (PEP) [Pending], Albumin (PEP) [Pending], Globulin (PEP) [Pending], Albumin/Globulin Ratio [Pending], Kfcyn-5-Bhxlxuiem [ Pending], Eqvwc-2-Kikynrryl [Pending], Beta Globulins [Pending], Beta Gamma Globulin [Pending], PEP Abnormal Protein Bands [Pending], Protein Electrophoresis Interpret [Pending], Vitamin B12 Level 136L, Vitamin D 25- Hydroxy [Pending], 25-Hydroxy Vitamin D2 [Pending], 25-Hydroxy Vitamin D3 [ Pending], Folate 17.4, Rapid Plasma Reagin [Pending] 9/3/19 08:30: White Blood Count 5.0, Red Blood Count 3.91L, Hemoglobin 12.4, Hematocrit 37.5, Mean Corpuscular Volume 96, Mean Corpuscular Hemoglobin 31.6H, Mean Corpuscular Hemoglobin Concent 32.9, Red Cell Distribution Width 12.3, Platelet Count 180, Mean Platelet Volume 6.4L, Neutrophils (%) (Auto) 63.2, Lymphocytes (%) (Auto) 24.4, Monocytes (%) (Auto) 8.7, Eosinophils (%) (Auto) 2.6, Basophils (%) (Auto ) 1.1, Sodium Level 143, Potassium Level 4.0, Chloride Level 107, Carbon Dioxide Level 25, Anion Gap 11, Blood Urea Nitrogen 14, Creatinine 1.0, Estimat Glomerular Filtration Rate , Glucose Level 177H, Calcium Level 9.2 Height (Feet): 5 Height (Inches): 2.00 Weight (Pounds): 130 Jacques Knight MD Jul 19, 2019 10:15
--- NOTE | 2019-07-19 10:48 | NUR ---
NURSE NOTES: able to restart IV access on LFA 22g. patient appeared cooperative. will initiate IVF per MD order. will cont to monitor.
[2019-07-19] MEDS ORDERED: OLANZapine 2.5mg tab ORAL PRN (11:45)
--- NOTE | 2019-07-19 12:11 | NUR ---
MRI BRAIN COMPLETED.
[2019-07-19 12:30] VITALS: BP 150/90
[2019-07-19] MEDS ORDERED: HYDROcodone/Acetamin 5/325 tab ORAL PRN (14:30)
--- NOTE | 2019-07-19 15:44 | NUR ---
ST NOTE: REFERRED FOR SWALLOW EVAL BY DR. CINTRON, SEE FULL REPORT TO FOLLOW. DYSPHAGIA RISK FACTORS FOR THIS 83 Y.O. MOSTLY CANTONESE SPEAKING FEMALE: ACUTE ISSUES: FALL CT HEAD NEGATIVE FOR ACUTE BUT HAS OLD CVA (RIGHT CAUDATE NUCLEUS LACUNAR INFARCT) BUT HAS OCCIPITAL HEMATOMA AND PAIN IN BACK OF HEAD, GENERAL WEAKNESS, DEHYDRATION POSSIBLE SYNCOPAL EPISODE. H/O CHI, HTN, ENDOCRINE D/O, DIABETES. NO POLST/AD REGARDING LT TUBE FEEDING PREFERENCES. ? DIET AT HOME BUT NOW ON A SOFT CHEW DIET AND THIN LIQUIDS WITH 100% INTAKE GOOD RATE OF INTAKE AND NO OVERT ASPIRATION PER ADITYA SYKES. ALERT AND NOT VERY CONVERSANT. SPEAKS MOSTLY CANTONESE BUT KNOW SOME BRITISH PER RAILWAY STATION MANAGER. HAS UPPER FULL DENTURES AND HER OWN LOWERS. ON ROOM AIR. INITIAL IMPRESSIONS: GROSSLY FUNCTIONAL SWALLOW WITH THIN LIQUIDS VIA STRAW SEQUENTIAL SIPS (3 OZ WATER CHRISTIANO SWALLOW TEST), W/O OVERT ASPIRATION. GROSSLY FUNCTIONAL WITH PUREED TSP AND MASTICATED SOLID (1/2 CRACKER) W/O OVERT ASPIRATION. MAY HAVE A SILENT ASPIRATION RISK GIVEN H/O OLD CVA AND NEW HEAD TRAUMA (MILD). GOOD INTAKE ON SOFT CHEW DIET RECOMMENDATIONS: CONSIDER CONTINUING WITH CURRENT DIET OF SOFT CHEW AND THIN LIQUIDS. DIET TYPE PER RD WHEN THEY SEE HER (SHE HAS DIABETES AND HTN AND ON REG TYPE DIET NOW). DYSPHAGIA MANAGEMENT/TX IF NEEDS COG-COM EVAL/TX POST HEAD TRAUMA IF NEEDS MOD BARIUM SWALLOW STUDY IP OR OP IF DC TO FURTHER ASSESS SWALLOW, DETERMINE SILENT ASP RISK AND ATTEMPT TRIAL TX IF NEEDS D/W HOLA DAN AND ADITYA SYKES TOLD RAILWAY STATION MANAGER TO HAVE FAMILY BRING IN CONSTRUCTION ASSISTANT FOR DENTURES AND PT NEEDS DENTURES OUT WHEN SHE SLEEPS. NO OVERT S/S OF A SIGNIFICANT DYSPHAGIA BUT HAS A SILENT ASPIRATION RISK.
--- NOTE | 2019-07-19 15:51 | NUR ---
CASE MANAGEMENT: INITIAL REVIEW 83 YO F CHIQUITA FROM [facility] CC: SYNCOPE PMHx: HTN. SI:FALL. GEN WEAKNESS. DEHYDRATION. T 97.4 HR 70 RR 21 B/P 86/44 SATS 100% ON RA BUN 25 GLU 182 IS: NS BOLUS X1 ZOSYN IV X1 HEAD CT IMPRESSION: 1. No acute intracranial findings. 2. 5 mm hypodensity in the right caudate nucleus, likely a remote lacunar infarct. 3. Periventricular white matter hypodensities, likely related to chronic small vessel disease changes. 4. Generalized cerebral parenchymal volume loss, likely age-related. PATIENT ADMITTED TO MED/SURG 07/17/2019 @ 1930 DCP: PATIENT TO BE DISCHARGED TO APPROPRIATE LOCATION ONCE MEDICALLY CLEARED. PLAN OF CARE: 2D ECHO CAROTID DUPLEX EEG Addendum: 07/20/19 at 0624 by Alba Lee INTERQUAL MET
[2019-07-19 16:00] VITALS: BP 130/69
--- NOTE | 2019-07-19 16:12 | Diagnostic Imaging Report ---
Indication: Head trauma from fall, confusion, syncope Technique: sagittal T1 fast spin echo, axial T1 FLAIR, axial T2 FLAIR, axial T2 FS PROPELLER, axial T2* GRE, axial diffusion weighted images. ADC and exponential ADC maps generated Comparison: Brain CT dated 07/17/2019 Findings: No abnormal areas of restricted diffusion to suggest acute infarction. There is are 2 areas of curvilinear susceptibility artifact in the left posterior frontal cortex. The larger more inferior of these demonstrates associated decreased T1 and T2 FLAIR signal, slightly increased T2 signal. The smaller area near the vertex does not demonstrate associated signal abnormality on other sequences. No evidence of acute hemorrhage. No acute edema.. No mass effect nor midline shift. There is age-related enlargement of the ventricles and extra axial CSF spaces. The vascular flow voids are preserved. There is periventricular deep white matter high T2 signal, consistent with chronic microvascular ischemic change.. Visualized orbits and sinuses are unremarkable. There is evidence of prior bilateral cataract surgery. The sinuses are clear. Impression: Negative for infarct or acute edema 2 areas of of susceptibility artifact in the left posterior frontal cortex. These likely represent either chronic or late subacute cortical petechial bleeds Age-related volume loss Periventricular deep white matter high T2 signal, consistent with chronic microvascular ischemic changes
--- NOTE | 2019-07-19 18:39 | Neurology Progress Note ---
Interim History Interim History Interim History Ms. Alvaro Villarreal feels better. She was able to sleep relatively well last night. She tells me that she is eating well. She took a brief walk with the physical therapist earlier today. She has had no further episodes of loss of consciousness or dizziness or lightheadedness. She denies any new neurological symptoms. She specifically denies any weakness on one side of the other, numbness on one side or the other, problems with speech, problems with language, problems with vision, or other neurological symptoms. Review of Systems Neuro Review of Systems Benign. Objective Physical Exam Last Vital Signs Date Time Temp Pulse Resp B/P (MAP) Pulse Ox O2 Delivery O2 Flow Rate FiO2 07/19/19 16:00 98.6 63 18 130/69 (89) 98 07/19/19 08:26 Room Air Laboratory Tests Test 07/19/19 08:30 White Blood Count 5.0 K/UL (4.8-10.8) Red Blood Count 3.91 M/UL (4.20-5.40) L Hemoglobin 12.4 G/DL (12.0-16.0) Hematocrit 37.5 % (37.0-47.0) Mean Corpuscular Volume 96 FL (80-99) Mean Corpuscular Hemoglobin 31.6 PG (27.0-31.0) H Mean Corpuscular Hemoglobin Concent 32.9 G/DL (32.0-36.0) Red Cell Distribution Width 12.3 % (11.6-14.8) Platelet Count 180 K/UL (150-450) Mean Platelet Volume 6.4 FL (6.5-10.1) L Neutrophils (%) (Auto) 63.2 % (45.0-75.0) Lymphocytes (%) (Auto) 24.4 % (20.0-45.0) Monocytes (%) (Auto) 8.7 % (1.0-10.0) Eosinophils (%) (Auto) 2.6 % (0.0-3.0) Basophils (%) (Auto) 1.1 % (0.0-2.0) Sodium Level 143 MMOL/L (136-145) Potassium Level 4.0 MMOL/L (3.5-5.1) Chloride Level 107 MMOL/L (98-107) Carbon Dioxide Level 25 MMOL/L (21-32) Anion Gap 11 mmol/L (5-15) Blood Urea Nitrogen 14 mg/dL (7-18) Creatinine 1.0 MG/DL (0.55-1.30) Estimat Glomerular Filtration Rate mL/min (>60) Glucose Level 177 MG/DL (74-106) H Calcium Level 9.2 MG/DL (8.5-10.1) Neurologic Exam Objective PHYSICAL EXAMINATION: GENERAL: She is a well developed, well nourished, but lean [place] lady, lying in bed, in no acute distress. HEAD: Normocephalic and atraumatic. EENT: Examination benign. NECK: No neck rigidity was observed. NEUROLOGICAL EXAMINATION: MENTAL STATUS EXAMINATION: She was awake and alert. She was oriented to self only. She did not know the name of the hospital, date , month, or year. She was able to recall 3/3 words immediately, but could only remember 1/3 words in 1 minute and 3 minutes even on the second trial. She was unable to tell me who the present President was and who prior Presidents were. Her mathematical skills were impaired. Her visuospatial function was also impaired. SPEECH: She had no dysarthria. LANGUAGE: She had anomia for low and mid frequency words. However, it should be noted that Spanish is her second language and her educational level is quite low. CRANIAL NERVE EXAMINATION: II: The visual capone were intact on confrontation testing. III, IV & : The external ocular movements were full and the pupils 3 mm in diameter, equal, round, regular, and reactive to light. V: She had normal facial sensations, and the temporales, masseters, and pterygoids functioned normally. VII: She had flattening of the right nasolabial fold. However both sides of the face moved relatively well when she was made to smile, wrinkle her forehead , and blow her cheeks out. VIII: She was able to hear well bilaterally and had no nystagmus. IX: The palate moved symmetrically on phonation. X: She had no hoarseness of voice. XI: The sternocleidomastoids and trapezii functioned normally. XII: The tongue was in the midline without any fasciculations or atrophy. MOTOR SYSTEM: The tone was normal in all four extremities. Examination of muscle mass revealed no focal wasting. Examination of power revealed G 5/5 power in all muscle groups tested. SENSORY EXAMINATION: She had intact sensations to pinprick, light touch, and graphesthesia. COORDINATION: She performed well on [id number]-[id number] and fwqv-cd-xysx testing. On Romberg test, she swayed, but did not fall to one side or the other. REFLEXES: 0 at the biceps, triceps, brachioradialis, knees, and ankles. The plantar responses were flexor bilaterally. STANCE: She had a minimally wide-based, but stable stance. GAIT: She walked with a minimally wide-based, but stable gait. Impression/Recommendations Diagnostic Impression 1. Ms. Leandro Villarreal is an 83-year-old, right-handed, [place] lady who has a prior history of hypertension and diabetes mellitus. On 07/17/2019, she was apparently found outside her assisted living facility unconscious. She had apparently passed out and was unable to get up on her own. 2. She feels better. She was able to sleep relatively well last night. She tells me that she is eating well. She took a brief walk with the physical therapist earlier today. She has had no further episodes of loss of consciousness or dizziness or lightheadedness. She denies any new neurological symptoms. 3. On neurological examination, at this time, she is quite oblivious as to what brought her into the hospital. She has significant problems with orientation, recent and remote memory, visuospatial function, higher cognitive function, and language. She also has flattening of the right nasolabial fold, globally absent deep tendon reflexes, a minimally wide-based stance, and a minimally wide -based gait. 4. 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 In addition, an old right basal ganglion lacune was also noted. 5. Her laboratory tests on my initial evaluation revealed that she was mildly anemic with a hemoglobin of 11.9 G. The chemistry panel on admission revealed a BUN elevated at 25 with a creatinine of 1.3. Her bood glucose was elevated at 182. Lactic acid was elevated at 3.5. Her BNP was elevated at 144. Her TSH was normal at 0.80. Her urinalysis was relatively benign with negative leukocyte esterase, 0 red blood cells, and 2-4 white blood cells per HPF. 6. Further laboratory tests have revealed that she is severely vitamin B12 deficient high level being 136. 7. An MRI scan of the brain performed on 07/19/2019 revealed atrophy, microvascular cerebrovascular disease, and 2 small areas of susceptibility artifact in the left frontal area indicative of microbleeds. 8. The patient's history, neurological examination, laboratory data, and imaging studies are most consistent with a syncopal episode most probably related to volume depletion. 9. The patient does have significant cognitive problems, which are most probably related to a primary degenerative process. It is unclear as to how much the vitamin B12 deficiency is contributing to her cognitive dysfunction. Recommendations 1. The patient was given an explanation of the above-mentioned findings. 2. Continue present management. 3. The patient should be kept well hydrated especially on warm days. 4. Her blood pressures and blood sugars should be kept under control. 5. Her activity level should be increased. 6. Vitamin B12 1000 mcg subcutaneously daily for 3 days and then monthly. 7. Await other laboratory tests. Donovan Shannon M.D., M.S.P.H. Donovan Shannon MD Jul 19, 2019 18:39
--- NOTE | 2019-07-19 19:12 | NUR ---
HAND-OFF: Report given to Eugenia.
--- NOTE | 2019-07-19 19:30 | Cardiology Progress Note ---
Assessment/Plan Assessment/Plan 1. Syncope, unwitnessed, positive orthostatics, hydration, 2D echocardiography shows normal LVEF at 60%. 2. History of hypertension, well controlled, continue amlodipine. 3. Diabetes Mellitus type 2, consider ASA and statins. 4. Hx of CVA. Subjective Subjective Sinus rhythm at rate of 63. Objective Last 24 Hour Vital Signs Date Time Temp Pulse Resp B/P (MAP) Pulse Ox O2 Delivery O2 Flow Rate FiO2 07/19/19 16:00 98.6 63 18 130/69 (89) 98 07/19/19 12:30 97.5 72 18 150/90 (110) 94 07/19/19 08:52 71 126/83 07/19/19 08:26 Room Air 07/19/19 08:00 Room Air 07/19/19 08:00 98.5 71 18 126/83 (97) 99 07/18/19 21:00 Room Air 07/18/19 20:00 93 151/86 (107) Intake and Output 07/18/19 07/19/19 19:00 07:00 Intake Total 200 ml 250 ml Output Total 300 ml Balance -100 ml 250 ml Intake Oral 120 ml 250 ml IV Total 80 ml Output Urine Total 300 ml # Voids 2 Laboratory Tests Test 07/19/19 08:30 White Blood Count 5.0 K/UL (4.8-10.8) Red Blood Count 3.91 M/UL (4.20-5.40) L Hemoglobin 12.4 G/DL (12.0-16.0) Hematocrit 37.5 % (37.0-47.0) Mean Corpuscular Volume 96 FL (80-99) Mean Corpuscular Hemoglobin 31.6 PG (27.0-31.0) H Mean Corpuscular Hemoglobin Concent 32.9 G/DL (32.0-36.0) Red Cell Distribution Width 12.3 % (11.6-14.8) Platelet Count 180 K/UL (150-450) Mean Platelet Volume 6.4 FL (6.5-10.1) L Neutrophils (%) (Auto) 63.2 % (45.0-75.0) Lymphocytes (%) (Auto) 24.4 % (20.0-45.0) Monocytes (%) (Auto) 8.7 % (1.0-10.0) Eosinophils (%) (Auto) 2.6 % (0.0-3.0) Basophils (%) (Auto) 1.1 % (0.0-2.0) Sodium Level 143 MMOL/L (136-145) Potassium Level 4.0 MMOL/L (3.5-5.1) Chloride Level 107 MMOL/L (98-107) Carbon Dioxide Level 25 MMOL/L (21-32) Anion Gap 11 mmol/L (5-15) Blood Urea Nitrogen 14 mg/dL (7-18) Creatinine 1.0 MG/DL (0.55-1.30) Estimat Glomerular Filtration Rate mL/min (>60) Glucose Level 177 MG/DL (74-106) H Calcium Level 9.2 MG/DL (8.5-10.1) Microbiology Date/Time Source Procedure Growth Status 07/17/19 13:40 Blood Blood Culture - Preliminary NO GROWTH AFTER 24 HOURS Resulted 07/17/19 13:35 Blood Blood Culture - Preliminary NO GROWTH AFTER 24 HOURS Resulted Objective HEENT: Atraumatic and normocephalic. Anicteric. Pupils are equal, round, and reactive to light and accommodation. Extraocular muscles intact. NECK: JVP less than 5 cm. No carotid bruit. Carotid upstroke is 2+ bilaterally. CARDIOVASCULAR: Normal S1 and S2. Regular rate and rhythm. No murmurs, gallops, or rubs. PMI is at fourth intercostal space in the midclavicular line. LUNGS: Clear to auscultation bilaterally. ABDOMEN: Soft, nontender, and nondistended. No hepatosplenomegaly, Positive bowel sounds. EXTREMITIES: No evidence of edema, clubbing, or cyanosis. Augustin Roldan MD Jul 19, 2019 19:30
[2019-07-19 20:00] VITALS: BP 108/55
[2019-07-19] MEDS: OLANZapine 2.5mg tab ORAL SCH (20:18)
[2019-07-19] MEDS: Vitamin B12 1000mcg/ml Inj SUBQ SCH (20:19)
--- NOTE | 2019-07-19 21:22 | NUR ---
NURSE NOTES: Received patient awake in bed, no c/o pain, no s/s of acute distress. IV access asymptomatic running IVF maintenance. BRP noted. Bed low and locked. Will monitor blood glucose closely.
[2019-07-19] MEDS ORDERED: Vancomycin 500 MG in D5W 110 ML IVPB SCH (22:00)
[2019-07-20] VITALS: BP 128/68
--- NOTE | 2019-07-20 01:45 | Consultation ---
DATE OF CONSULTATION: 07/19/2019 CONSULTING PHYSICIAN: Rony Torres M.D. HISTORY OF PRESENT ILLNESS: The patient is an 83-year-old [place] Citizen female, who has a history of multiple medical comorbidities including hypertension and diabetes mellitus, who has been admitted to the hospital for medical stabilization. The patient is presenting with confusion. She has been found down outside her assisted living facility unconscious. On the day of admission, the patient is unable to provide any history. The patient is being confused and got agitated. Earlier, she was unable to follow directions. The patient has memory impairment, episodes of agitation. PAST PSYCHIATRIC HISTORY: Dementia. PAST MEDICAL HISTORY: Includes hypertension and diabetes. ALLERGIES: No known drug allergies. SUBSTANCE ABUSE HISTORY: No known history of illicit drug use or alcohol. MENTAL STATUS EXAMINATION: The patient is alert, however, confused, unable to communicate due to cognitive impairment. Mood is anxious. Affect is blunted, congruent with mood. Thought process is concrete. Thought content, no suicidal or homicidal ideations. Insight and judgment, non-existent. ASSESSMENT: Burnham I Dementia with behavioral disturbance. Acute metabolic encephalopathy. Burnham II Deferred. Burnham III Diabetes mellitus and hypertension. Burnham IV Low. Burnham V 25. PLAN: 1. The patient will be started on Zyprexa 2.5 mg q.6 h. p.r.n. 2. Zyprexa 5 mg at bedtime. 3. The patient lacks capacity to make decisions. 4. We will discontinue the sitter. 5. Discussed with the charge nurse. Rony Torres M.D. DR: RIMMA JOB#: [id number] CC:
[2019-07-20] MEDS: NovoLOG Insulin Flexpen SUBQ SCH ×4 (05:45→20:41)
[2019-07-20 06:24] LABS: BASOPHILS % (AUTO) 1.1 % (0.0-2.0); EOSINOPHILS % (AUTO) 3.4 % (0.0-3.0); HEMATOCRIT 38.2 % (37.0-47.0); HEMOGLOBIN 12.4 G/DL (12.0-16.0); LYMPHOCYTES % (AUTO) 39.6 % (20.0-45.0); MEAN CORPUSCULAR VOLUME 97 FL (80-99); MONOCYTES % (AUTO) 10.4 % (1.0-10.0); NEUTROPHILS % (AUTO) 45.6 % (45.0-75.0); PLATELET COUNT 187 K/UL (150-450); RED BLOOD COUNT 3.93 M/UL (4.20-5.40); WHITE BLOOD COUNT 6.1 K/UL (4.8-10.8)
[2019-07-20 06:37] LABS: ANION GAP 11 mmol/L (5-15); BLOOD UREA NITROGEN 23 mg/dL (7-18); CALCIUM 9.3 MG/DL (8.5-10.1); CARBON DIOXIDE 25 MMOL/L (21-32); CHLORIDE 109 MMOL/L (98-107); CREATININE 1.3 MG/DL (0.55-1.30); SODIUM 145 MMOL/L (136-145)
--- NOTE | 2019-07-20 07:33 | NUR ---
HAND-OFF: Report given to HOLA Rosenthal.
[2019-07-20 08:00] VITALS: BP 120/99
--- NOTE | 2019-07-20 08:00 | NUR ---
NURSE NOTES: Patient pleasant alert to name,but patient does not know where she is,reoriented patient.Respirations unlabored. Breakfast at bedside,patient eating.IV fluids infusing as ordered.Sitter in room. Call light within reach. Addendum: 07/20/19 at 1857 by EMELINA CRUMP RN RN sitter in room for bed one,not for bed 2
[2019-07-20] MEDS: D5NS 1,000 ML IV SCH ×2 (09:45→22:13)
[2019-07-20] MEDS: Vitamin B12 1000mcg/ml Inj SUBQ SCH (10:08)
[2019-07-20] MEDS: Heparin 5000 units/ml inj SUBQ SCH ×2 (10:08→20:42)
[2019-07-20 12:00] VITALS: BP 131/66
--- NOTE | 2019-07-20 12:45 | General Progress Note ---
Assessment/Plan Assessment/Plan: S: I am feeling better O: seems comfortable PHYSICAL EXAMINATION:HEAD AND NECK: Atraumatic, normocephalic. CHEST: Clear to auscultation. HEART: S1, S2. Regular rate and rhythm. ABDOMEN: Soft. No organomegaly. MUSCULOSKELETAL: No gross lateralized motor deficit.[place] NEUROLOGY: Awake, alert, oriented x2-3. Meds and Labs: Dated Jul 20, reviewed and reconciled in the chart ASSESSMENT AND PLAN: 1. Acute encephalopathy. 2. Differential diagnoses including acute CVA, cardiovascular deficiencies. 3. Diabetes type 2. 4. CVA - history of. 5. Anemia. 6. Psychiatric disorder. Plan: Notes from Neurology reviewed I will consult PT and DC planning Subjective Allergies: Coded Allergies: No Known Allergies (Unverified , 07/17/19) Objective Last 24 Hour Vital Signs Date Time Temp Pulse Resp B/P (MAP) Pulse Ox O2 Delivery O2 Flow Rate FiO2 07/20/19 10:07 76 122/66 07/20/19 08:00 98.0 19 120/99 (106) 95 07/20/19 00:00 97.6 75 17 128/68 (88) 97 07/19/19 23:21 Room Air 07/19/19 20:00 98.2 69 16 108/55 (72) 98 07/19/19 16:00 98.6 63 18 130/69 (89) 98 Intake and Output 07/19/19 07/20/19 19:00 07:00 Intake Total 960 ml 620 ml Balance 960 ml 620 ml Intake Oral 240 ml 300 ml IV Total 720 ml 320 ml Laboratory Tests 07/20/19 05:23: White Blood Count 6.1, Red Blood Count 3.93L, Hemoglobin 12.4, Hematocrit 38.2, Mean Corpuscular Volume 97, Mean Corpuscular Hemoglobin 31.6H, Mean Corpuscular Hemoglobin Concent 32.5, Red Cell Distribution Width 12.0, Platelet Count 187, Mean Platelet Volume 6.5, Neutrophils (%) (Auto) 45.6, Lymphocytes (%) (Auto) 39.6, Monocytes (%) (Auto) 10.4H, Eosinophils (%) (Auto) 3.4H, Basophils (%) ( Auto) 1.1, Sodium Level 145, Potassium Level 4.0, Chloride Level 109H, Carbon Dioxide Level 25, Anion Gap 11, Blood Urea Nitrogen 23H, Creatinine 1.3, Estimat Glomerular Filtration Rate , Glucose Level 114H, Calcium Level 9.3 Height (Feet): 5 Height (Inches): 2.00 Weight (Pounds): 128 Jacques Knight MD Jul 20, 2019 12:45
--- NOTE | 2019-07-20 12:53 | NUR ---
CASE MANAGEMENT: REVIEW 07/20/2019 SI:FALL. GEN WEAKNESS. DEHYDRATION. T 98 HR 75 RR 17 B/P 128/68 SATS 97% ON RA CL 109 BUN 23 GLU 114 IS: IVF @ 80 mL/HR ZYPREXA PO QHS NORVASC PO QD INSULIN ASPART SUBQ AC/HS VANCO IV Q24H MED/SURG STATUS DCP: PATIENT TO BE DISCHARGED TO APPROPRIATE LOCATION ONCE MEDICALLY CLEARED. PLAN OF CARE: 2D ECHO EF 60%
--- NOTE | 2019-07-20 13:03 | NUR ---
INSURANCE NO INFO IN THE B/AR WHERE TO FAX CLINICALS
[2019-07-20 16:00] VITALS: BP 108/55
[2019-07-20] MEDS ORDERED: Tubing IV Secondary IV ONE (17:15)
[2019-07-20] MEDS ORDERED: NS 275ml ONE (17:15)
--- NOTE | 2019-07-20 18:55 | NUR ---
NURSE NOTES: Patient resting,no complaints at this time,IV fluids continue to infuse as ordered.Bed alarm on,call light within reach.
--- NOTE | 2019-07-20 19:33 | Neurology Progress Note ---
Interim History Interim History Interim History Ms. Alvaro Villarreal feels well. She was able to sleep well last night. She tells me that she is eating well. She took a brief walk earlier. She has had no further episodes of loss of consciousness or dizziness or lightheadedness. She denies any new neurological symptoms. She specifically denies any weakness on one side of the other, numbness on one side or the other, problems with speech, problems with language, problems with vision, or other neurological symptoms. Review of Systems Neuro Review of Systems Benign. Objective Physical Exam Last Vital Signs Date Time Temp Pulse Resp B/P (MAP) Pulse Ox O2 Delivery O2 Flow Rate FiO2 07/20/19 12:00 97.4 131/66 (87) 95 07/20/19 10:07 76 07/20/19 09:00 Room Air 07/20/19 08:00 19 Laboratory Tests Test 07/20/19 05:23 White Blood Count 6.1 K/UL (4.8-10.8) Red Blood Count 3.93 M/UL (4.20-5.40) L Hemoglobin 12.4 G/DL (12.0-16.0) Hematocrit 38.2 % (37.0-47.0) Mean Corpuscular Volume 97 FL (80-99) Mean Corpuscular Hemoglobin 31.6 PG (27.0-31.0) H Mean Corpuscular Hemoglobin Concent 32.5 G/DL (32.0-36.0) Red Cell Distribution Width 12.0 % (11.6-14.8) Platelet Count 187 K/UL (150-450) Mean Platelet Volume 6.5 FL (6.5-10.1) Neutrophils (%) (Auto) 45.6 % (45.0-75.0) Lymphocytes (%) (Auto) 39.6 % (20.0-45.0) Monocytes (%) (Auto) 10.4 % (1.0-10.0) H Eosinophils (%) (Auto) 3.4 % (0.0-3.0) H Basophils (%) (Auto) 1.1 % (0.0-2.0) Sodium Level 145 MMOL/L (136-145) Potassium Level 4.0 MMOL/L (3.5-5.1) Chloride Level 109 MMOL/L (98-107) H Carbon Dioxide Level 25 MMOL/L (21-32) Anion Gap 11 mmol/L (5-15) Blood Urea Nitrogen 23 mg/dL (7-18) H Creatinine 1.3 MG/DL (0.55-1.30) Estimat Glomerular Filtration Rate mL/min (>60) Glucose Level 114 MG/DL (74-106) H Calcium Level 9.3 MG/DL (8.5-10.1) Neurologic Exam Objective PHYSICAL EXAMINATION: GENERAL: She is a well developed, well nourished, but lean [place] lady, lying in bed, in no acute distress. HEAD: Normocephalic and atraumatic. EENT: Examination benign. NECK: No neck rigidity was observed. NEUROLOGICAL EXAMINATION: MENTAL STATUS EXAMINATION: She was awake and alert. She was oriented to self only. She did not know the name of the hospital, date , month, or year. She was able to recall 3/3 words immediately, but could only remember 1/3 words in 1 minute and 3 minutes even on the second trial. She was unable to tell me who the present President was and who prior Presidents were. Her mathematical skills were impaired. Her visuospatial function was also impaired. SPEECH: She had no dysarthria. LANGUAGE: She had anomia for low and mid frequency words. However, it should be noted that Syriac is her second language and her educational level is quite low. CRANIAL NERVE EXAMINATION: II: The visual capone were intact on confrontation testing. III, IV & : The external ocular movements were full and the pupils 3 mm in diameter, equal, round, regular, and reactive to light. V: She had normal facial sensations, and the temporales, masseters, and pterygoids functioned normally. VII: She had flattening of the right nasolabial fold. However both sides of the face moved relatively well when she was made to smile, wrinkle her forehead , and blow her cheeks out. VIII: She was able to hear well bilaterally and had no nystagmus. IX: The palate moved symmetrically on phonation. X: She had no hoarseness of voice. XI: The sternocleidomastoids and trapezii functioned normally. XII: The tongue was in the midline without any fasciculations or atrophy. MOTOR SYSTEM: The tone was normal in all four extremities. Examination of muscle mass revealed no focal wasting. Examination of power revealed G 5/5 power in all muscle groups tested. SENSORY EXAMINATION: She had intact sensations to pinprick, light touch, and graphesthesia. COORDINATION: She performed well on [id number]-do-nfyg and wzdu-om-fywe testing. REFLEXES: 0 at the biceps, triceps, brachioradialis, knees, and ankles. The plantar responses were flexor bilaterally. STANCE & GAIT: Were deferred. Impression/Recommendations Diagnostic Impression 1. Ms. Leandro Villarreal is an 83-year-old, right-handed, [place] lady who has a prior history of hypertension and diabetes mellitus. On 07/17/2019, she was apparently found outside her assisted living facility unconscious. She had apparently passed out and was unable to get up on her own. 2. She feels well. She was able to sleep well last night. She tells me that she is eating well. She took a brief walk earlier. She has had no further episodes of loss of consciousness or dizziness or lightheadedness. She denies any new neurological symptoms. 3. On neurological examination, at this time, she is quite oblivious as to what brought her into the hospital. She has significant problems with orientation, recent and remote memory, visuospatial function, higher cognitive function, and language. She also has flattening of the right nasolabial fold, globally absent deep tendon reflexes, a minimally wide-based stance, and a minimally wide -based gait. 4. 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 In addition, an old right basal ganglion lacune was also noted. 5. Her laboratory tests on my initial evaluation revealed that she was mildly anemic with a hemoglobin of 11.9 G. The chemistry panel on admission revealed a BUN elevated at 25 with a creatinine of 1.3. Her bood glucose was elevated at 182. Lactic acid was elevated at 3.5. Her BNP was elevated at 144. Her TSH was normal at 0.80. Her urinalysis was relatively benign with negative leukocyte esterase, 0 red blood cells, and 2-4 white blood cells per HPF. 6. Further laboratory tests have revealed that she is severely vitamin B12 deficient high level being 136. 7. An MRI scan of the brain performed on 07/19/2019 revealed atrophy, microvascular cerebrovascular disease, and 2 small areas of susceptibility artifact in the left frontal area indicative of microbleeds. 8. The patient's history, neurological examination, laboratory data, and imaging studies are most consistent with a syncopal episode most probably related to volume depletion. 9. The patient does have significant cognitive problems, which are most probably related to a primary degenerative process. It is unclear as to how much the vitamin B12 deficiency is contributing to her cognitive dysfunction. Recommendations 1. The patient was given an explanation of the above-mentioned findings. 2. Continue present management. 3. The patient should be kept well hydrated especially on warm days. 4. Her blood pressures and blood sugars should be kept under control. 5. Her activity level should be increased. 6. Vitamin B12 1000 mcg subcutaneously daily for 3 days and then monthly. 7. Await other laboratory tests. Donovan Shannon M.D., M.S.P.H. Donovan Shannon MD Jul 20, 2019 19:33
--- NOTE | 2019-07-20 19:48 | NUR ---
HAND-OFF: Report given to SHAGUFTA SIMENTAL.
--- NOTE | 2019-07-20 19:49 | NUR ---
NURSE NOTES: Received patient in no apparent distress. A&OX2 with confusion. IV site patent and intact. Bed in lowest position. Call light within reach. Will continue to monitor.
[2019-07-20 20:00] VITALS: BP 95/54
[2019-07-20] MEDS: Atorvastatin 20mg tab ORAL SCH (20:42)
[2019-07-20] MEDS: Aspirin EC 81mg tab ORAL SCH (20:42)
[2019-07-20] MEDS: OLANZapine 2.5mg tab ORAL SCH (20:42)
--- NOTE | 2019-07-20 20:45 | Progress Note ---
DATE: 07/20/2019 SUBJECTIVE: The patient is more redirectable. Wants to be in her hospital clothes. The patient has a sitter. The patient was in bed today and no agitation or anxiety. The patient is confused, disoriented. The nurse wanted to assist her to be in the hospital down; however, she keeps taking off the gown. She is paranoid and delusional and fearful. MENTAL STATUS EXAMINATION: The patient is alert, knows her name, disoriented. Mood is neutral to anxious. Affect is flat. Thought process is concrete. Thought content, no suicidal or homicidal ideations. ASSESSMENT: Hurley I Dementia with behavior disturbance. Anxiety disorder. Hurley II Deferred. Hurley III As above. Hurley IV Low. Hurley V 20. PLAN: 1. We will continue the current medications. 2. Provide the patient reality orientation and supportive therapy. Rony Torres M.D. DR: LEIDY JOB#: [id number] CC:
[2019-07-20] MEDS ORDERED: Vancomycin 500 MG in D5W 110 ML IVPB SCH (22:00)
[2019-07-20] MEDS: Vancomycin 750mg/NS 275ml IVPB SCH ×2 (22:11)
--- NOTE | 2019-07-20 23:00 | NUR ---
NURSE NOTES: EEG was done.
[2019-07-21] VITALS: BP 132/70
--- NOTE | 2019-07-21 01:15 | Consultation ---
DATE OF CONSULTATION: 07/20/2019 PHYSICAL MEDICINE REHABILITATION CONSULTATION CONSULTING PHYSICIAN: Jay Torres M.D. REQUESTING PHYSICIAN: Jacques Knight M.D. NEUROLOGIST: Donovan Shannon M.D. POWER MACHINE OPERATOR: Augustin Roldan M.D. PSYCHIATRIST: Rony Torres M.D. CHIEF COMPLAINT: Difficulty with ambulation, activity of daily living, cognitive memory impairment, swallowing abnormality in a patient with multifactorial encephalopathy. HISTORY OF PRESENT ILLNESS: The patient is an 83-year-old female originally from [facility], who came to [facility] over 50 years ago. Apparently, she has been living in an assisted living facility in a modified independent level of function with ability of ambulation with a Rollator with a seat and brake. She was found unconscious next to the assisted living place and was brought to the emergency room at [facility]. CT scan of the head was done that reported by radiologist as an area of right caudate nucleus remote lacunar infarct, but no acute intracranial findings reported. Cervical spine CT scan negative for fracture and showed mild degenerative changes. The patient had CT scan of the abdomen and pelvis which was reported as a thickening of the rectum, questionable for proctocolitis versus rectal mass. Chest x-ray showed increased interstitial marking with congestion and brain MRI reported by radiologist as negative for infarct or acute edema. 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 I was asked today to evaluate the patient for rehabilitation. The patient was seen by neurologist and newspaper vendor as well as psychiatrist. She has memory impairment and is not a good historian. Denies any pain at this time. However, she does have difficulty with her functionality as well as memory and swallowing as well. PAST MEDICAL AND SURGICAL HISTORY: Incomplete database, but apparently I think she has history of hypertension and cerebrovascular accident. MEDICATIONS: Vancomycin IV daily, Zyprexa 5 mg at bedtime, B12 1 mg subcutaneously daily, Roosevelt p.r.n., Zyprexa 2.5 mg q.6 hours p.r.n., NovoLog insulin sliding scale, Norvasc 2.5 mg daily, D50 p.r.n., heparin 5000 units b.i.d., Tylenol and Catapres p.r.n. ALLERGIES: Not known drug allergy. FAMILY AND SOCIAL HISTORY: The patient never been . She does not have any children. 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 She was in an modified independent level of function with ability of ambulation with a Rollator with seat and brake. Denies history of tobacco, alcohol, or illicit drugs. She used to work in a [employer] in the past. She is originally from [facility] that came to [facility] 50 years ago. Never been . No children. Current level of function not officially evaluated by physical therapy and occupational therapy. REVIEW OF SYSTEMS: CONSTITUTIONAL: No chills and fever. EYES: Denies diplopia. ENT: The patient with dysphagia. CARDIOVASCULAR: No chest pain. PULMONARY: No shortness of breath. GASTROINTESTINAL: No abdominal pain. GENITOURINARY: No dysuria. MUSCULOSKELETAL: Denies pain. INTEGUMENTARY: No cancerous lesion. NEURO: The patient with cognitive memory impairment and generalized weakness, status post loss of consciousness. PHYSICAL EXAMINATION: VITAL SIGNS: Blood pressure 130/60, respiratory rate 18 per minute, heart rate 76 per minute, temperature 98 degrees Fahrenheit, and O2 saturation 95%. Height 157.5 cm. Weight is 58 kilogram. Body mass index 24. GENERAL: No acute distress. HEENT: Extraocular movement intact. No facial droop. NECK: Supple with no lymphadenopathy. Pulse bilateral carotids, femoral, and dorsalis pedis palpable. HEART: Regular rhythm and rate. LUNGS: Clear to auscultation bilaterally. ABDOMEN: Soft, nontender, nondistended. Normal bowel sounds with no palpable abnormal mass. EXTREMITIES: No pitting edema. No calf tenderness. No clubbing or cyanosis. SKIN: No rashes. NEURO: The patient is awake, follows commands, oriented to her name. Not oriented to place, name of President, year, month, and date. Manual muscle strength of bilateral upper and lower limb antigravity. LABORATORY DATA: WBC 6.1, hemoglobin 12.4, and platelets 187,000. Sodium 145, potassium 4, BUN 23, creatinine 1.3, and glucose 114. B12 136. Folate 17.4. Urinalysis, few bacteria. RPR negative. ASSESSMENT: This is an 83-year-old female with: 1. Multifactorial encephalopathy. 2. Debility and functional decline. 3. Gait abnormality. 4. Dysfunction. 5. Diabetes mellitus. 6. B12 deficiency. 7. Urinary tract infection versus pneumonia. 8. Abdomen and pelvis CT scan evidence of thickening of the distal 5 to 6 cm of rectum, questionable proctocolitis versus rectal mass. 9. Brain MRI evidence of a late subacute versus chronic cortical petechial bleed. 10. Cognitive and memory impairment. RECOMMENDATIONS: This patient needs physical therapy, occupational therapy, speech therapy, and 24-hours nursing care. Physical therapy for range of motion, transfer training, endurance, balance and gait training, fall prevention with appropriate assistive device. Occupational therapy for activities of daily living, equipment function transfer evaluation, and training upper extremity range of motion and strengthening exercise. Speech therapy for evaluation and retraining on the status of her cognition, memory, speech, language, and swallow evaluation and retraining and aspiration precautions. Nursing for evaluation of her bowel and bladder, medication regimen, skin care prevention, pressure ulcer for patient, and stencil cutter machine education. Continue medical management per Medicine. Fall precaution, pressure ulcer precaution, cardiac precaution, and aspiration precaution. This patient may benefit from acute inpatient rehabilitation placement and the patient is medically stable and clear. Thank you for your consultation. Jay Torres M.D. DR: VITOR JOB#: [id number] CC:
[2019-07-21 04:00] VITALS: BP 147/88
[2019-07-21] MEDS: NovoLOG Insulin Flexpen SUBQ SCH ×4 (06:09→20:59)
--- NOTE | 2019-07-21 07:45 | NUR ---
HAND-OFF: Report given to Deidre SIMENTAL.
[2019-07-21 08:00] VITALS: BP 119/68
--- NOTE | 2019-07-21 08:18 | NUR ---
NURSE NOTES: Received pt from [facility]. Pt is confuse and orient x2. pt is in RA, no SOB or acute respiratory distress noted. pt has intact iv access LFA 24g is running well. Pt is eating breakfast independently. all needs attended, bed is locked and is in the lowest position. call light within easy reach. will continue to monitor.
[2019-07-21] MEDS: Aspirin EC 81mg tab ORAL SCH (08:45)
[2019-07-21] MEDS: Vitamin B12 1000mcg/ml Inj SUBQ SCH (08:45)
[2019-07-21] MEDS: Heparin 5000 units/ml inj SUBQ SCH ×2 (08:46→20:55)
--- NOTE | 2019-07-21 10:31 | General Progress Note ---
Assessment/Plan Assessment/Plan: S: I am feeling better O: seems comfortable PHYSICAL EXAMINATION:HEAD AND NECK: Atraumatic, normocephalic. CHEST: Clear to auscultation.HEART: S1, S2. Regular rate and rhythm. ABDOMEN: Soft. No organomegaly.MUSCULOSKELETAL: No gross lateralized motor deficit.Wide base gate NEUROLOGY: Awake, alert, oriented x2-3. Meds and Labs: Dated Jul 20, reviewed and reconciled in the chart ASSESSMENT AND PLAN: 1. Acute encephalopathy. 2. Differential diagnoses including acute CVA, cardiovascular deficiencies. 3. Diabetes type 2. 4. CVA - history of. 5. Anemia. 6. Psychiatric disorder. Plan: Notes from Neurology and Rehab reviewed Is medically stable for continuation of Rehab in ARU Subjective Allergies: Coded Allergies: No Known Allergies (Unverified , 07/17/19) Objective Last 24 Hour Vital Signs Date Time Temp Pulse Resp B/P (MAP) Pulse Ox O2 Delivery O2 Flow Rate FiO2 07/21/19 08:45 63 119/68 07/21/19 08:00 98.0 63 18 119/68 (85) 97 07/21/19 04:00 98.2 78 19 147/88 (107) 97 07/21/19 00:00 98.6 76 18 132/70 (90) 96 07/20/19 21:00 Room Air 07/20/19 20:00 98.2 70 19 95/54 (68) 96 07/20/19 16:00 98.3 18 108/55 (72) 95 07/20/19 12:00 97.4 131/66 (87) 95 Intake and Output 07/20/19 07/21/19 18:59 06:59 Intake Total 1080 ml 835.000 ml Balance 1080 ml 835.000 ml Intake Oral 1080 ml IV Total 835.000 ml # Voids 6 Laboratory Tests 07/20/19 20:55: Vancomycin Level Trough 6.0 Height (Feet): 5 Height (Inches): 2.00 Weight (Pounds): 128 Jacques Knight MD Jul 21, 2019 10:31
[2019-07-21] MEDS: D5NS 1,000 ML IV SCH (11:11)
--- NOTE | 2019-07-21 11:25 | Neurology Progress Note ---
Interim History Interim History Interim History Ms. Alvaro Villarreal feels well. She was able to sleep well last night. She tells me that she is eating well. She has not walked today. She has had no further episodes of loss of consciousness or dizziness or lightheadedness. She denies any new neurological symptoms. She specifically denies any weakness on one side of the other, numbness on one side or the other, problems with speech, problems with language, problems with vision, or other neurological symptoms. Review of Systems Neuro Review of Systems Benign. Objective Physical Exam Last Vital Signs Date Time Temp Pulse Resp B/P (MAP) Pulse Ox O2 Delivery O2 Flow Rate FiO2 07/21/19 09:00 Room Air 07/21/19 08:45 63 119/68 07/21/19 08:00 98.0 18 97 Laboratory Tests Test 07/20/19 20:55 Vancomycin Level Trough 6.0 ug/mL (5.0-12.0) Neurologic Exam Objective PHYSICAL EXAMINATION: GENERAL: She is a well developed, well nourished, but lean Welsh lady, lying in bed, in no acute distress. HEAD: Normocephalic and atraumatic. EENT: Examination benign. NECK: No neck rigidity was observed. NEUROLOGICAL EXAMINATION: MENTAL STATUS EXAMINATION: She was awake and alert. She was oriented to self only. She did not know the name of the hospital, date , month, or year. She was able to recall 3/3 words immediately, but could only remember 1/3 words in 1 minute and 3 minutes even on the second trial. She was unable to tell me who the present President was and who prior Presidents were. Her mathematical skills were impaired. Her visuospatial function was also impaired. SPEECH: She had no dysarthria. LANGUAGE: She had anomia for low and mid frequency words. However, it should be noted that Lao is her second language and her educational level is quite low. CRANIAL NERVE EXAMINATION: II: The visual capone were intact on confrontation testing. III, IV & : The external ocular movements were full and the pupils 3 mm in diameter, equal, round, regular, and reactive to light. V: She had normal facial sensations, and the temporales, masseters, and pterygoids functioned normally. VII: She had flattening of the right nasolabial fold. However both sides of the face moved relatively well when she was made to smile, wrinkle her forehead , and blow her cheeks out. VIII: She was able to hear well bilaterally and had no nystagmus. IX: The palate moved symmetrically on phonation. X: She had no hoarseness of voice. XI: The sternocleidomastoids and trapezii functioned normally. XII: The tongue was in the midline without any fasciculations or atrophy. MOTOR SYSTEM: The tone was normal in all four extremities. Examination of muscle mass revealed no focal wasting. Examination of power revealed G 5/5 power in all muscle groups tested. SENSORY EXAMINATION: She had intact sensations to pinprick, light touch, and graphesthesia. COORDINATION: She performed well on xyxfcb-cc-[id number] and ucoi-mx-wbnf testing. REFLEXES: 0 at the biceps, triceps, brachioradialis, knees, and ankles. The plantar responses were flexor bilaterally. STANCE & GAIT: Were deferred. Impression/Recommendations Diagnostic Impression 1. Ms. Leandro Villarreal is an 83-year-old, right-handed, Welsh lady who has a prior history of hypertension and diabetes mellitus. On 07/17/2019, she was apparently found outside her assisted living facility unconscious. She had apparently passed out and was unable to get up on her own. 2. She feels well. She was able to sleep well last night. She tells me that she is eating well. She has not walked today. She has had no further episodes of loss of consciousness or dizziness or lightheadedness. She denies any new neurological symptoms. 3. On neurological examination, at this time, she is quite oblivious as to what brought her into the hospital. She has significant problems with orientation, recent and remote memory, visuospatial function, higher cognitive function, and language. She also has flattening of the right nasolabial fold, globally absent deep tendon reflexes, a minimally wide-based stance, and a minimally wide -based gait. 4. 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 In addition, an old right basal ganglion lacune was also noted. 5. Her laboratory tests on my initial evaluation revealed that she was mildly anemic with a hemoglobin of 11.9 G. The chemistry panel on admission revealed a BUN elevated at 25 with a creatinine of 1.3. Her bood glucose was elevated at 182. Lactic acid was elevated at 3.5. Her BNP was elevated at 144. Her TSH was normal at 0.80. Her urinalysis was relatively benign with negative leukocyte esterase, 0 red blood cells, and 2-4 white blood cells per HPF. 6. Further laboratory tests have revealed that she is severely vitamin B12 deficient high level being 136. 7. An MRI scan of the brain performed on 07/19/2019 revealed atrophy, microvascular cerebrovascular disease, and 2 small areas of susceptibility artifact in the left frontal area indicative of microbleeds. 8. The patient's history, neurological examination, laboratory data, and imaging studies are most consistent with a syncopal episode most probably related to volume depletion. 9. The patient does have significant cognitive problems, which are most probably related to a primary degenerative process. It is unclear as to how much the vitamin B12 deficiency is contributing to her cognitive dysfunction. Recommendations 1. The patient was given an explanation of the above-mentioned findings. 2. Continue present management. 3. The patient should be kept well hydrated especially on warm days. 4. Her blood pressures and blood sugars should be kept under control. 5. Her activity level should be increased. 6. Vitamin B12 1000 mcg subcutaneously daily for 3 days and then monthly. 7. Await other laboratory tests. Donovan Shannon M.D., M.S.P.H. Donovan Shannon MD Jul 21, 2019 11:25
--- NOTE | 2019-07-21 11:44 | NUR ---
*-* INSURANCE *-* ALL CLINICALS AND REVIEWS HAVE BEEN FAXED TO: [facility] NCM: JULIENNE TRClaudio# [id number] P: [phone] F: [phone]
[2019-07-21 12:00] VITALS: BP 141/86
--- NOTE | 2019-07-21 12:21 | NUR ---
CASE MANAGEMENT: REVIEW 07/21/2019 SI:FALL. GEN WEAKNESS. DEHYDRATION. T 98 HR 63 RR 18 B/P 119/68 SATS 97% ON RA NO LABS TODAY IS: IVF @ 80 mL/HR ZYPREXA PO QHS NORVASC PO QD INSULIN ASPART SUBQ AC/HS VANCO IV Q24H MED/SURG STATUS DCP: PATIENT TO BE DISCHARGED TO SNF ONCE MEDICALLY CLEARED PLAN OF CARE: DC PLANNING
--- NOTE | 2019-07-21 12:29 | NUR ---
DISCHARGE PLANNING: NOTE CLINICALS FAXED TO [facility]. PT NOTES PENDING
--- NOTE | 2019-07-21 12:46 | Diagnostic Imaging Report ---
APPROVED REPORT CPT Code: 37987 Present Symptoms Comments: PAIN BILATERAL: Imaging reveals a patent deep venous system bilaterally. There is no evidence of thrombus within the femoral, popliteal or tibial segments. The greater saphenous veins are also within normal limits. Doppler indicates normal spontaneous flow within these segments.
--- NOTE | 2019-07-21 12:46 | Diagnostic Imaging Report ---
APPROVED REPORT CPT Code: 94792 Vascular Symptoms Syncope Doppler Spectral Velocity Analysis RightLeft RIGHT SIDE: CCA - Imaging reveals no significant plaque in the common carotid artery. ICA arteries. The Doppler signal indicates the degree of stenosis is minimal (20%) in the internal carotid, and (10%) in the external carotid arteries. VERTEBRAL - The vertebral arteries were not well visualized. The subclavian artery is patent. arteries. The Doppler spectral flow analysis indicates the degree of stenosis is minimal (10%) in the common carotid artery, mild (20%) in the internal carotid artery, and minimal (20%) in the external carotid artery. SUBCLAVIAN/VERTEBRAL - The subclavian and vertebral arteries are patent, without evidence of stenosis or steal.
--- NOTE | 2019-07-21 13:30 | NUR ---
P.T Note: P.T evaluation completed and treatment initiated. Please refer to P.T evaluation for current functional status. Pt is alert, pleasant and cooperative, Oriented to self and place but not to time. Pt is periodically confused and forgetful however able to converse appropriately with simple conversation. Pt denied c/o pain however reports c/o generalized weakness. Pt currently require SBA X 1 for Bed mobilities, MIN A X 1 for transfers and gait/ambulation activities using the FWW. Pt should benefit from skilled P.T service to improve her strength, balance and endurance. Recommend continued skilled P.T service at [facility] vs return to prior living arrangement. Thank you for this referral.
--- NOTE | 2019-07-21 15:28 | NUR ---
DISCHARGE PLANNING: NOTE [facility] IS NOT CONTRACTED. AWARE. [facility] IS CONTRACTED CLINICALS FAXED TO [facility] [place] T: [phone] F: [phone]
[2019-07-21 16:00] VITALS: BP 148/89
[2019-07-21] MEDS ORDERED: LORazepam 1mg tab ORAL PRN (16:00)
--- NOTE | 2019-07-21 16:06 | NUR ---
NURSE NOTES: pt is very agitate, Dr AMOR notified and ordered Ativan Po but pt refused after 3 times and explained risks. ATIVAN wasted in med room.
--- NOTE | 2019-07-21 16:15 | Electroencephalogram ---
DATE OF PROCEDURE: 07/20/2019 REQUESTING PHYSICIAN: Jacques Knight M.D. READING PHYSICIAN: Donovan Shannon M.D. PROCEDURE PERFORMED: Electroencephalogram. HISTORY: This EEG was performed on an 83-year-old lady who apparently had an episode of loss of consciousness, the exact details of which were unclear. The patient has also exhibited cognitive problems. The purpose of this EEG was to evaluate the patient for the degree and type of cerebral dysfunction and to exclude ongoing ictal or interictal phenomena. TECHNICAL NOTE: This EEG was performed on a [employer] with electrodes placed on the scalp according to the International 10-20 system. Hjqns-tb-qczjn and ikyza-oa-igz montages were used. The EEG was technically satisfactory and was performed in the awake and drowsy states. OBSERVATIONS: In the best awake state, the background activity consisted of 8.5-9 Hz alpha activity. Drowsiness was characterized by slowing of the background in the 6-7 Hz theta range. During drowsiness, bifrontal polymorphic delta activity was noted. No epileptiform discharges were seen. IMPRESSION: This is an abnormal EEG characterized by bifrontal polymorphic delta activity seen during drowsiness. COMMENT: This study is consistent with bilateral frontal dysfunction. Donovan Shannon M.D., M.S.P.H. DR: REYNALDO JOB#: [id number] [facility]
--- NOTE | 2019-07-21 16:30 | Progress Note ---
DATE: 07/21/2019 SUBJECTIVE: The patient is more redirectable, calm. She is able to answer the questions, not having any episodes of agitation. Still confused. MENTAL STATUS EXAMINATION: The patient is alert and oriented times to self. She knows she is in the hospital. Mood is neutral. Affect is constricted, congruent with mood. Thought process is concrete. Thought content, no suicidal or homicidal ideations. Cognition is impaired. ASSESSMENT: The patient's delirium is improving. PLAN: We will continue current medication. Provide the patient with reality orientation and supportive therapy. Rony Torres M.D. DR: DWIGHT JOB#: [id number] CC: JESENIA
[2019-07-21] MEDS ORDERED: Lactulose 20gm/30ml UDC ORAL PRN (17:45)
--- NOTE | 2019-07-21 17:50 | NUR ---
NURSE NOTES: pt has constipation, Dr CINTRON notified and ordered LACTULOSE, but pt refused x3. will continue to monitor.
--- NOTE | 2019-07-21 18:05 | NUR ---
DISCHARGE PLANNING: NOTE [facility] IS WILLING TO ACCEPT THIS PATIENT. [phone] SHE IS WAITING ON AUTH FROM [facility] FROM [facility] [phone] Addendum: 07/21/19 at 1807 by Alba Lee CM [facility] AUTH [id number]
[2019-07-21] MEDS ORDERED: Haloperidol 5mg/ml Inj IM PRN (18:15)
--- NOTE | 2019-07-21 18:25 | NUR ---
NURSE NOTES: pt is very agitate, Dr AMOR notified and ordered Haldol 5mg IM, noted and carried out. will continue to monitor.
--- NOTE | 2019-07-21 19:13 | General Progress Note ---
Progress Note Progress Note REHAB F/U PROGRESS NOTE: SUBJECTIVE: AWAKE SITTING AT EOB DENIES PAIN NOW PER PT>> Rolling * Independent Supine to Sit * Stand By Assistance Bed Mobility Assistive Devices * Bed Rail * Trapeze Bar Sit to Stand * Minimal Assistance Bed to Chair/Wheelchair * Minimal Assistance Transfer assistive devices * Front wheel walker Therapeutic Activities Comment * Pt presents with difficulty rising from sit to standing transitioning with tendency to fall hard on the seat surface during stand to sittin transition due to weak eccentric muscle group.Pt require verbal cues to give emphasis on proper hand placement and mobility sequencing. Distance * 50 ft Assistance * Minimal Assistance Assistive Device * Rollator CHART AND MEDS REVIEWED. REVIEW OF SYSTEMS: EYES: Denies Diplopia. ENT: The patient with dysphagia. CARDIOVASCULAR: No chest pain. PULMONARY: No shortness of breath. GASTROINTESTINAL: No abdominal pain. GENITOURINARY: No dysuria. MUSCULOSKELETAL: Denies pain. NEURO: The patient with cognitive memory impairment and generalized weakness, status post loss of consciousness. PHYSICAL EXAMINATION: VITAL SIGNS: PER CHART, NOTED. HEENT: No facial droop. NECK: Supple HEART: Regular rhythm and rate. LUNGS: Clear to auscultation bilaterally. ABDOMEN: Soft, nontender, nondistended. Normal bowel sounds EXTREMITIES: No pitting edema. No calf tenderness. No clubbing or cyanosis. NEURO: The patient is awake, follows commands, oriented to her name. Not oriented to place, name of President, Manual muscle strength of bilateral upper and lower limb antigravity. LABORATORY DATA: PER CHART, NOTED. ASSESSMENT: This is an 83-year-old female with: 1. Multifactorial encephalopathy. 2. Debility and functional decline. 3. Gait abnormality. 4. Dysfunction. 5. Diabetes mellitus. 6. B12 deficiency. 7. Urinary tract infection versus pneumonia. 8. Abdomen and pelvis CT scan evidence of thickening of the distal 5 to 6 cm of rectum, questionable proctocolitis versus rectal mass. 9. Brain MRI evidence of a late subacute versus chronic cortical petechial bleed. 10. Cognitive and memory impairment. RECOMMENDATIONS: 24-hours nursing care. Physical therapy for range of motion, transfer training, endurance, balance and gait training, fall prevention with appropriate assistive device. Occupational therapy for activities of daily living, equipment function transfer Training upper extremity range of motion and strengthening exercise. Speech therapy for retraining on the status of her cognition, memory, speech, language, and swallow retraining and aspiration precautions. Nursing for her bowel and bladder, medication regimen, skin care prevention, pressure ulcer for patient, and jewel stripper education. Continue medical management per Medicine. Fall precaution, pressure ulcer precaution, cardiac precaution, and aspiration precaution. acute inpatient rehabilitation placement and the patient is medically stable and clear >> PENDING INSURANCE AUTHORIZATION. D/W PMD. Jay Torres MD Jul 21, 2019 19:13
--- NOTE | 2019-07-21 19:42 | NUR ---
HAND-OFF: Report given to GARY SIMENTAL. Pt is stable and calm.
--- NOTE | 2019-07-21 19:56 | NUR ---
NURSE NOTES: Patient in bed, awake, confused. No s/s distress noted. IV intact. Bed in lowest position, call light within reach, bed alarm on. Will continue to monitor.
[2019-07-21 20:00] VITALS: BP 136/80
[2019-07-21] MEDS: OLANZapine 2.5mg tab ORAL SCH (20:55)
[2019-07-21] MEDS: Atorvastatin 20mg tab ORAL SCH (20:55)
[2019-07-21] MEDS: Vancomycin 750mg/NS 275ml IVPB SCH ×2 (22:24)
--- NOTE | 2019-07-21 23:07 | Cardiology Progress Note ---
Assessment/Plan Assessment/Plan 1. Syncope, unwitnessed, positive orthostatics, hydration, 2D echocardiography shows normal LVEF at 60%. 2. History of hypertension, well controlled, continue amlodipine. 3. Diabetes Mellitus type 2, consider ASA and statins. 4. Hx of CVA. Subjective Subjective Transferred to the med surg unit. No cardiac events noted. Objective Last 24 Hour Vital Signs Date Time Temp Pulse Resp B/P (MAP) Pulse Ox O2 Delivery O2 Flow Rate FiO2 07/21/19 21:15 Room Air 07/21/19 20:00 97.1 81 18 136/80 (98) 95 07/21/19 16:00 98.4 82 18 148/89 (108) 96 07/21/19 12:00 97.4 76 18 141/86 (104) 96 07/21/19 09:00 Room Air 07/21/19 08:45 63 119/68 07/21/19 08:00 98.0 63 18 119/68 (85) 97 07/21/19 04:00 98.2 78 19 147/88 (107) 97 07/21/19 00:00 98.6 76 18 132/70 (90) 96 Intake and Output 07/20/19 07/21/19 18:59 06:59 Intake Total 1080 ml 835.000 ml Balance 1080 ml 835.000 ml Intake Oral 1080 ml IV Total 835.000 ml # Voids 6 2D Echo: LVEF 60%, Mild MR, Grade I LVDD, RVSP 37 mmHg Objective HEENT: Atraumatic and normocephalic. Anicteric. Pupils are equal, round, and reactive to light and accommodation. Extraocular muscles intact. NECK: JVP less than 5 cm. No carotid bruit. Carotid upstroke is 2+ bilaterally. CARDIOVASCULAR: Normal S1 and S2. Regular rate and rhythm. No murmurs, gallops, or rubs. PMI is at fourth intercostal space in the midclavicular line. LUNGS: Clear to auscultation bilaterally. ABDOMEN: Soft, nontender, and nondistended. No hepatosplenomegaly, Positive bowel sounds. EXTREMITIES: No evidence of edema, clubbing, or cyanosis. Augsutin Roldan MD Jul 21, 2019 23:07
[2019-07-22] VITALS (7 sets, daily range): BP systolic 99–131; BP diastolic 57–78
--- NOTE | 2019-07-22 06:00 | NUR ---
NURSE NOTES: PATIENT ASLEEP, NO DISTRESS.
[2019-07-22] MEDS: NovoLOG Insulin Flexpen SUBQ SCH ×4 (06:02→21:15)
--- NOTE | 2019-07-22 07:21 | NUR ---
HAND-OFF: Report given to AMANDA Callejas RN.
--- NOTE | 2019-07-22 07:30 | NUR ---
NURSE NOTES: Received pt from [facility]. Pt is confused and orient x2. pt is in RA, no SOB or acute respiratory distress noted. pt has intact iv access RH 22g SL. Pt is eating breakfast independently. all needs attended, bed is locked and is in the lowest position. call light within easy reach. will continue to monitor.
[2019-07-22] MEDS: Aspirin EC 81mg tab ORAL SCH (08:38)
[2019-07-22] MEDS: Heparin 5000 units/ml inj SUBQ SCH ×2 (08:43→21:14)
--- NOTE | 2019-07-22 09:00 | NUR ---
NURSE NOTES: PT HAS CONSTIPATION, GIVEN LACTULOSE ORDER AND TOLERATE WELL. WILL CONTINUE TO MONITOR.L
--- NOTE | 2019-07-22 11:04 | General Progress Note ---
Assessment/Plan Assessment/Plan: S: I am feeling better O: seems comfortable, problem with balance PHYSICAL EXAMINATION:HEAD AND NECK: Atraumatic, normocephalic. CHEST: Clear to auscultation.HEART: S1, S2. Regular rate and rhythm. ABDOMEN: Soft. No organomegaly.MUSCULOSKELETAL: No gross lateralized motor deficit.Wide base gate and dependent for ambulation to walker NEUROLOGY: Awake, alert, oriented x2-3. Meds and Labs: Dated Jul 20, reviewed and reconciled in the chart ASSESSMENT AND PLAN: 1. Acute encephalopathy. 2. Differential diagnoses including acute CVA, cardiovascular deficiencies. 3. Diabetes type 2. 4. CVA - history of. 5. Anemia. 6. Psychiatric disorder. Plan: Notes from Neurology and Rehab reviewed Is medically stable for continuation of Rehab in [facility] Subjective Allergies: Coded Allergies: No Known Allergies (Unverified , 07/17/19) Objective Last 24 Hour Vital Signs Date Time Temp Pulse Resp B/P (MAP) Pulse Ox O2 Delivery O2 Flow Rate FiO2 07/22/19 09:00 Room Air 07/22/19 08:41 74 128/75 07/22/19 08:00 97.8 74 18 128/75 (92) 98 07/22/19 04:00 97.7 65 18 131/78 (95) 95 07/22/19 00:00 97.7 18 129/74 (92) 95 07/21/19 21:15 Room Air 07/21/19 20:00 97.1 81 18 136/80 (98) 95 07/21/19 16:00 98.4 82 18 148/89 (108) 96 07/21/19 12:00 97.4 76 18 141/86 (104) 96 Intake and Output 07/21/19 07/22/19 18:59 06:59 Intake Total 800 ml 455.000 ml Balance 800 ml 455.000 ml Intake Oral 240 ml 180 ml IV Total 560 ml 275.000 ml # Voids 2 6 Height (Feet): 5 Height (Inches): 2.00 Weight (Pounds): 128 Jacques Knight MD Jul 22, 2019 11:04
--- NOTE | 2019-07-22 11:29 | NUR ---
*-* INSURANCE *-* UPDATED CLINICALS AND REVIEWS HAVE BEEN FAXED TO: LINDA RICOM: JULIENNE TRClaudio# [id number] P: [phone] F: [phone]
--- NOTE | 2019-07-22 14:17 | NUR ---
ROTARY CUTTER FEEDER NOTES RECEIVED CALL FROM HOLGER CARDENAS AUTHORIZATION FOR SNF GIVEN [phone]. PLACED A CALL TO YOGI AT [facility], MESSAGE LEFT WAITING FOR CALL BACK. WILL FOLLOW UP HOLGER [phone]
--- NOTE | 2019-07-22 16:02 | NUR ---
DISCHARGE SWALLOW/SPEECH THERAPY SUMMARY: SEEN FOR DYSPHAGIA, SEE SWALLOW EVAL. REPORT. STILL NEEDS MOD BARIUM SWALLOW STUDY NOT COMPLETED DUE TO SCHEDULE CONFLICTS. GOALS MET FOR INTAKE INCONSISTENTLY AND GOALS MET FOR STAFF EDUCATED/TRAINED IN POSTED ASPIRATION PRECAUTIONS. PLAN: F/UP WITH REGIONAL COORDINATOR AT SNF FOR MOD BARIUM SWALLOW STUDY ( OP) AND SKILLED DYSPHAGIA MANAGEMENT AND TX INDICATED.
--- NOTE | 2019-07-22 16:22 | NUR ---
DISCHARGE PLANNING DISCHARGE ORDER NOTED Patient has been accepted to; [facility] [id number] [place] [address] Bed:106-A Skilled [phone] for Nurse to Nurse report [facility] ETA for transportation: 18:00
[2019-07-22] MEDS ORDERED: ASPIR 8181 MG ORAL (16:52)
[2019-07-22] MEDS ORDERED: AMLODIPINE BES2.5 MG ORAL (16:52)
[2019-07-22] MEDS ORDERED: ACETAMINOPHEN325 M1 ORAL (16:52)
[2019-07-22] MEDS ORDERED: ATORVASTATIN CA40 MG ORAL (16:53)
[2019-07-22] MEDS ORDERED: CATAPRES0.1 MG ORAL (16:54)
[2019-07-22] MEDS ORDERED: NORCO 5-325 TA1 EACH ORAL (16:55)
[2019-07-22] MEDS ORDERED: NOVOLOG100 UNIT/4 SQ (16:56)
[2019-07-22] MEDS ORDERED: LACTULOSE20 GM/301 ORAL (16:57)
[2019-07-22] MEDS ORDERED: LORAZEPAM1 MG ORAL (16:58)
[2019-07-22] MEDS ORDERED: ZYPREXA5 MG ORAL (16:58)
[2019-07-22] MEDS ORDERED: ZYPREXA2.5 MG ORAL (16:59)
--- NOTE | 2019-07-22 17:20 | General Progress Note ---
Progress Note Progress Note REHAB F/U PROGRESS NOTE: SUBJECTIVE: AWAKE AT BED DENIES PAIN NOW GOOD PO INTAKE FEEDING HERSELF PER PT>> GAIT Distance * 120 ft Assistance * Minimal Assistance Assistive Device * Rollator CHART AND MEDS REVIEWED. REVIEW OF SYSTEMS: EYES: Denies Diplopia. ENT: The patient with dysphagia. CARDIOVASCULAR: No chest pain. PULMONARY: No shortness of breath. GASTROINTESTINAL: No abdominal pain. GENITOURINARY: No dysuria. MUSCULOSKELETAL: Denies pain. NEURO: The patient with cognitive memory impairment and generalized weakness, status post loss of consciousness. PHYSICAL EXAMINATION: VITAL SIGNS: PER CHART, NOTED. HEENT: No facial droop. NECK: Supple HEART: Regular rhythm and rate. LUNGS: Clear to auscultation bilaterally. ABDOMEN: Soft, nontender, nondistended. Normal bowel sounds EXTREMITIES: No pitting edema. No calf tenderness. No clubbing or cyanosis. NEURO: The patient is awake, follows commands, oriented to her name. Not oriented to place, name of President, Manual muscle strength of bilateral upper and lower limb antigravity. LABORATORY DATA: PER CHART, NOTED. ASSESSMENT: This is an 83-year-old female with: 1. Multifactorial encephalopathy. 2. Debility and functional decline. 3. Gait abnormality. 4. Dysfunction. 5. Diabetes mellitus. 6. B12 deficiency. 7. Urinary tract infection versus pneumonia. 8. Abdomen and pelvis CT scan evidence of thickening of the distal 5 to 6 cm of rectum, questionable proctocolitis versus rectal mass. 9. Brain MRI evidence of a late subacute versus chronic cortical petechial bleed. 10. Cognitive and memory impairment. RECOMMENDATIONS: 24-hours nursing care. Physical therapy for range of motion, transfer training, endurance, balance and gait training, fall prevention with appropriate assistive device. Occupational therapy for activities of daily living, equipment function transfer Training upper extremity range of motion and strengthening exercise. Speech therapy for retraining on the status of her cognition, memory, speech, language, and swallow retraining and aspiration precautions. Nursing for her bowel and bladder, medication regimen, skin care prevention, pressure ulcer for patient, and community health nurse supervisor education. Continue medical management per Medicine. Fall precaution, pressure ulcer precaution, cardiac precaution, and aspiration precaution. acute inpatient rehabilitation placement and the patient is medically stable and clear >> PENDING INSURANCE AUTHORIZATION. VIDEO SWALLOW STUDY Jay Torres MD Jul 22, 2019 17:20
--- NOTE | 2019-07-22 18:44 | NUR ---
NURSE NOTES: pt has D/C order. all D/C assessments and instructions done and pt verbally confirmed to understand all. pt is stable, V/S stable. Dr CINTRON called and ordered to D/C pt to SNF with hospital meds and D/C ATB, noted and carried out. all belongings are with pt and checked by RN and signed by pt and a copy6 of belongings paper send to SNF.Pt has BM today. Report given to SNF RICO ASHLEY. 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 will continue to monitor.
--- NOTE | 2019-07-22 19:39 | NUR ---
HAND-OFF: Report given to ZAINAB SIMENTAL.
--- NOTE | 2019-07-22 20:00 | NUR ---
NURSE NOTES: [facility] called informing that pick-up will be late another 45 mins.
--- NOTE | 2019-07-22 20:03 | NUR ---
NURSE NOTES: Pt is in bed, awake. No acute distress noted. Vitals stable. Pt is on room air. Fall precaution in place. Bed locked low in position, side rails up. Bed alarm on. Pt awaiting ambulance to be discharge to [facility]. Pt will be monitored.
--- NOTE | 2019-07-22 20:06 | Neurology Progress Note ---
Interim History Interim History Interim History Ms. Alvaro Villarreal feels well. She is very sleepy now. She is unable to tell me why. She tells me that she has been eating well. She walked earlier today. She has had no further episodes of loss of consciousness or dizziness or lightheadedness. She denies any new neurological symptoms. She specifically denies any weakness on one side of the other, numbness on one side or the other, problems with speech, problems with language, problems with vision, or other neurological symptoms. Review of Systems Neuro Review of Systems Benign. Objective Physical Exam Last Vital Signs Date Time Temp Pulse Resp B/P (MAP) Pulse Ox O2 Delivery O2 Flow Rate FiO2 07/22/19 16:00 98.0 61 18 123/57 (79) 97 07/22/19 09:00 Room Air Neurologic Exam Objective PHYSICAL EXAMINATION: GENERAL: She is a well developed, well nourished, but lean Marshallese lady, lying in bed, in no acute distress. HEAD: Normocephalic and atraumatic. EENT: Examination benign. NECK: No neck rigidity was observed. NEUROLOGICAL EXAMINATION: MENTAL STATUS EXAMINATION: She was awake and alert. She was oriented to self only. She did not know the name of the hospital, date , month, or year. She was able to recall 3/3 words immediately, but could only remember 1/3 words in 1 minute and 3 minutes even on the second trial. She was unable to tell me who the present President was and who prior Presidents were. Her mathematical skills were impaired. Her visuospatial function was also impaired. SPEECH: She had no dysarthria. LANGUAGE: She had anomia for low and mid frequency words. However, it should be noted that Malian is her second language and her educational level is quite low. CRANIAL NERVE EXAMINATION: II: The visual capone were intact on confrontation testing. III, IV & : The external ocular movements were full and the pupils 3 mm in diameter, equal, round, regular, and reactive to light. V: She had normal facial sensations, and the temporales, masseters, and pterygoids functioned normally. VII: She had flattening of the right nasolabial fold. However both sides of the face moved relatively well when she was made to smile, wrinkle her forehead , and blow her cheeks out. VIII: She was able to hear well bilaterally and had no nystagmus. IX: The palate moved symmetrically on phonation. X: She had no hoarseness of voice. XI: The sternocleidomastoids and trapezii functioned normally. XII: The tongue was in the midline without any fasciculations or atrophy. MOTOR SYSTEM: The tone was normal in all four extremities. Examination of muscle mass revealed no focal wasting. Examination of power revealed G 5/5 power in all muscle groups tested. SENSORY EXAMINATION: She had intact sensations to pinprick, light touch, and graphesthesia. COORDINATION: She performed well on [id number]-niob and lwex-er-frrh testing. REFLEXES: 0 at the biceps, triceps, brachioradialis, knees, and ankles. The plantar responses were flexor bilaterally. STANCE & GAIT: Were deferred. Impression/Recommendations Diagnostic Impression 1. Ms. Leandro Villarreal is an 83-year-old, right-handed, Marshallese lady who has a prior history of hypertension and diabetes mellitus. On 07/17/2019, she was apparently found outside her assisted living facility unconscious. She had apparently passed out and was unable to get up on her own. 2. She feels well. She is very sleepy now. She is unable to tell me why. She tells me that she has been eating well. She walked earlier today. She has had no further episodes of loss of consciousness or dizziness or lightheadedness. She denies any new neurological symptoms. 3. On neurological examination, at this time, she is quite oblivious as to what brought her into the hospital. She has significant problems with orientation, recent and remote memory, visuospatial function, higher cognitive function, and language. She also has flattening of the right nasolabial fold, globally absent deep tendon reflexes, a minimally wide-based stance, and a minimally wide -based gait. 4. 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 In addition, an old right basal ganglion lacune was also noted. 5. Her laboratory tests on my initial evaluation revealed that she was mildly anemic with a hemoglobin of 11.9 G. The chemistry panel on admission revealed a BUN elevated at 25 with a creatinine of 1.3. Her bood glucose was elevated at 182. Lactic acid was elevated at 3.5. Her BNP was elevated at 144. Her TSH was normal at 0.80. Her urinalysis was relatively benign with negative leukocyte esterase, 0 red blood cells, and 2-4 white blood cells per HPF. 6. Further laboratory tests have revealed that she is severely vitamin B12 deficient high level being 136. 7. An MRI scan of the brain performed on 07/19/2019 revealed atrophy, microvascular cerebrovascular disease, and 2 small areas of susceptibility artifact in the left frontal area indicative of microbleeds. 8. The patient's history, neurological examination, laboratory data, and imaging studies are most consistent with a syncopal episode most probably related to volume depletion. 9. The patient does have significant cognitive problems, which are most probably related to a primary degenerative process. It is unclear as to how much the vitamin B12 deficiency is contributing to her cognitive dysfunction. Recommendations 1. The patient was given an explanation of the above-mentioned findings. 2. Continue present management. 3. The patient should be kept well hydrated especially on warm days. 4. Her blood pressures and blood sugars should be kept under control. 5. Her activity level should be increased. 6. Vitamin B12 1000 mcg subcutaneously monthly. 7. Await other laboratory tests. Donovan Shannon M.D., M.S.P.H. Donovan Shannon MD Jul 22, 2019 20:06
[2019-07-22] MEDS: OLANZapine 2.5mg tab ORAL SCH ×2 (21:00→21:13)
[2019-07-22] MEDS: Atorvastatin 20mg tab ORAL SCH ×2 (21:00→21:13)
[2019-07-22] MEDS: Vancomycin 750mg/NS 275ml IVPB SCH ×2 (22:00)
--- NOTE | 2019-07-22 23:44 | NUR ---
DISCHARGE NOTE: Pt discharged to [facility] room 106A via [facility] in stable condition. During discharge pt's vitas signs were stable. Pt was awake. NO acute distress noted. Report was given to RICO Ponce at the SNF by HOLA Sotomayor during previous shift. Kris was also notified when patient left the unit at 2225. Pt's belongings sent with patient. Discharge paperwork and instructions sent with patient. IV access and ID band removed.
--- NOTE | 2019-07-24 15:32 | Discharge Summary ---
Discharge Summary Discharge Summary _ DATE OF ADMISSION: 07/17/2019 DATE OF DISCHARGE: 07/22/2019 DISCHARGED BY: Dr. Jacques Knight CONSULTANTS: Dr. Donovan Roldan [facility] COURSE: Patient is an 83-year-old female, who lives in a [facility], reported that she passed out. She does not have any recollection of incident. Patient was found laying on the side. She was found on the ground and was unable to get up. Patient reported pain to the back of her head. History was limited. She was noted to have a occipital hematoma by the EMS. She has unknown past medical history. On evaluation at the ED, blood pressure systolic was on the 80s. Heart rate was normal. Blood work did not show any leukocytosis. Hemoglobin and hematocrit were stable. Electrolytes were normal. BUN was elevated to 25. Glucose 182. Lactic acid 3.5. Troponin was negative. Urinalysis showed 2+ protein, 3+ glucose, negative leukocyte. EKG showed normal sinus rhythm without any acute ST or T wave changes. Head CT did not show any acute findings. Cervical spine CT with no evidence of acute fracture or malalignment. Abdominal and pelvic CT with nonspecific segmental wall thickening involving the distal 5 to 6 cm of the rectum. Chest x-ray showed normal cardiac size without evident infiltrates per ED physician. She was given IV fluids and antibiotics. She was then admitted for acute encephalopathy. Coal Handler was consulted for management of syncope. Syncopal episode was unwitnessed. Patient was noted to have hypovolemia. She was given IV fluids. Antihypertensives were placed on hold. Orthostatic vitals positive. Neuro evaluation done. Neuro examination showed problems with orientation, recent and remote memory, visual-spatial function, higher cognitive function and language. She had flattening of the right nasolabial fold, globally absent deep tendon reflexes and a minimally wide-based stance, and minimally wide- based gait. CT scan of the brain without contrast revealed atrophy and old microvascular cerebrovascular disease. In addition to an old right basal ganglia lacunar infarct. Neuro examination was stable. Patient had significant cognitive problems most probably related to primary degenerative process. Syncopal episode was most probably related to volume depletion. Echo showed normal LVEF at 60%. She was eventually started on amlodipine for blood pressure. She was given aspirin and Lipitor. She was given physical therapy. She denied any weakness on one side, numbness or problems with vision or language. There was no new neurological symptoms. B12 level was 136. She was given cyanocobalamin injections. EEG showed bifrontal polymorphic delta activity, consistent with bilateral frontal dysfunction. Psychiatrist was consulted for evaluation of agitation. Patient was diagnosed with dementia with behavioral disturbance. She was started on Zyprexa 2.5 mg every 6 hours as needed and 5 mg nightly. She was assessed to lack the capacity to make medical decisions. Sitter was eventually discontinued. Rehab consultation was obtained. Patient was recommended to have physical therapy, Occupational Therapy, and speech therapy. Patient was referred to [facility]. Patient was then discharged to SNF. FINAL DIAGNOSES: Syncopal episode due to volume depletion Acute encephalopathy Diabetes type 2 Old CVA Anemia Psychiatric disorder Hypertension Dementia with behavioral disturbance DISPOSITION: Patient was discharged to a SNF. DISCHARGE MEDICATIONS: Refer to Discharge Medication List. I have been assigned to complete a discharge summary on this account, I was not involved with the patient's management.--BEHZAD Delaney Jacqueline Robles NP Jul 24, 2019 15:32
--- NOTE | 2019-07-25 11:03 | NUR ---
*-* INSURANCE *-* DISCHARGE SUMMARY HAS BEEN FAXED TO: LINDA RICOM: JULIENNE TRK# [id number] P: [phone] F: [phone]
--- NOTE | 2019-07-25 11:41 | Cardiology Report ---
APPROVED REPORT EXAM: Two-dimensional and M-mode echocardiogram with Doppler and color Doppler. INDICATION HTN M-Mode DIMENSIONS IVSd0.9 (0.7-1.1cm)Left Atrium (MM)2.5 (1.6-4.0cm) LVDd4.2 (3.5-5.6cm)Aortic Root3.3 (2.0-3.7cm) PWd0.8 (0.7-1.1cm)Aortic Cusp Exc.1.7 (1.5-2.0cm) IVSs1.1 cm LVDs2.6 (2.5-4.0cm) PWs1.4 cm Normal left ventricular chamber size, systolic function and wall motion . Left ventricular ejection fraction estimated to be 60%. No left ventricular hypertrophy. No evidence of pericardial effusion. All other cardiac chamber sizes are within normal limits. Focal aortic valve sclerosis with adequate cusp excursion. Thickened mitral valve leaflets with normal excursion. Mitral annulus and aortic root calcification. Normal pulmonic valve structure. Normal tricuspid valve structure. IVC at normal size with physiologic collapse. A color flow and spectral Doppler study was performed and revealed: No aortic insufficiency. Mild mitral regurgitation. Mitral diastolic velocities suggest reduced left ventricular relaxation c/w mild LV diastolic dysfunction (Grade I ). Mild tricuspid regurgitation. Tricuspid systolic velocities suggests peak right ventricular systolic pressure of 37 mmHg,consistent with mild pulmonary hypertension.
== END 2019-07-22 22:30 | DRG 640 ==
LOC: EDBD 12:56 → EMR 14:50 → 2W 15:00 → EDBEDREQ 17:47 → 2W 07-18 18:03 → 4E 07-19 08:17
DX: E86.1 Hypovolemia (principal); G93.41 Metabolic encephalopathy; F03.91 Unspecified dementia, unspecified severity, with behavioral disturbance; R55 Syncope and collapse; E11.9 Type 2 diabetes mellitus without complications; Z86.73 Personal history of transient ischemic attack (TIA), and cerebral infarction without residual deficits; I10 Essential (primary) hypertension; F99 Mental disorder, not otherwise specified; S00.03XA Contusion of scalp, initial encounter; W19.XXXA Unspecified fall, initial encounter; Y92.480 Sidewalk as the place of occurrence of the external cause; R26.9 Unspecified abnormalities of gait and mobility; R53.81 Other malaise; E53.8 Deficiency of other specified B group vitamins; D64.9 Anemia, unspecified
CPT/HCPCS: 36415; 70450; 70551; 71045; 72125; 74176; 80048; 80053; 80061; 80202; 81003; 82306; 82607; 82746; 82962; 83036; 83605; 83880; 84165; 84443; 84484; 85025; 85610; 85730; 86592; 87040; 93005; 93306; 93880; 93970; 95819; 96361; 96365; 99285; J1815

== ENCOUNTER 2019-07-28 11:40 | Emergency (ER) | payer MEDICARE, OTHER ==
[~2019-07-28] VITALS: Ht 162.6 cm; Wt 54.9 kg
[~2019-07-28 11:40] MED LIST: ACETAMINOPHEN325 M1 ORAL; AMLODIPINE BES2.5 MG ORAL; ASPIR 8181 MG ORAL; ATORVASTATIN CA40 MG ORAL; CATAPRES0.1 MG ORAL; LACTULOSE20 GM/301 ORAL; LORAZEPAM1 MG ORAL; NORCO 5-325 TA1 EACH ORAL; NOVOLOG100 UNIT/4 SQ; ZYPREXA2.5 MG ORAL; ZYPREXA5 MG ORAL
[2019-07-28 11:45] VITALS: BP 166/70
--- NOTE | 2019-07-28 11:45 | NUR ---
ED Nurse Note: Pt brought in by EMS from [facility] S/P fall and has a large hematoma on right eye and head. Pt was found facing down the floor this morning by staff. Per pt she fell 2 days ago. Pt is AAO x2, ambulates with assistance with non labored breathing. Noted right eye swelling and small bump on left side of her head. Some bruising note don left forearm.
--- NOTE | 2019-07-28 12:08 | NUR ---
ED Nurse Note: Blood collected then sent. Pt taken down for head CT.
[2019-07-28 12:26] LABS: BASOPHILS % (AUTO) 0.8 % (0.0-2.0); EOSINOPHILS % (AUTO) 0.4 % (0.0-3.0); HEMATOCRIT 41.3 % (37.0-47.0); HEMOGLOBIN 13.5 G/DL (12.0-16.0); LYMPHOCYTES % (AUTO) 16.3 % (20.0-45.0); MEAN CORPUSCULAR VOLUME 97 FL (80-99); MONOCYTES % (AUTO) 5.2 % (1.0-10.0); NEUTROPHILS % (AUTO) 77.3 % (45.0-75.0); PLATELET COUNT 225 K/UL (150-450); RED BLOOD COUNT 4.27 M/UL (4.20-5.40); RED CELL DISTRIBUTION WIDTH 12.1 % (11.6-14.8)
[2019-07-28 12:35] LABS: ANION GAP 11 mmol/L (5-15); BLOOD UREA NITROGEN 25 mg/dL (7-18); CALCIUM 9.5 MG/DL (8.5-10.1); CARBON DIOXIDE 28 MMOL/L (21-32); CHLORIDE 104 MMOL/L (98-107); CREATININE 1.1 MG/DL (0.55-1.30); POTASSIUM 4.7 MMOL/L (3.5-5.1); SODIUM 142 MMOL/L (136-145)
[2019-07-28 12:42] LABS: ALANINE AMINOTRANSFERASE 34 U/L (12-78); ALBUMIN/GLOBULIN RATIO 0.9 (1.0-2.7); ALKALINE PHOSPHATASE 93 U/L (46-116); ASPARTATE AMINO TRANSFERASE 28 U/L (15-37); BILIRUBIN,TOTAL 0.7 MG/DL (0.2-1.0)
--- NOTE | 2019-07-28 13:04 | Diagnostic Imaging Report ---
Indication: Headache. Facial contusion and head trauma. Technique: Contiguous 5 mm thick transaxial imaging of the head obtained in a Siemens Sensation [address] scanner. Soft tissue and bone windows generated. Automatic Exposure Control was utilized. Total Dose length Product (DLP): 1439.[address] Dose Index Volume (CTDIvol): 70.38 mGy Comparison: none Findings: There is mild prominence of the ventricles, basal cisterns, and cerebral sulci consistent with atrophy. Mild, nonspecific, white matter hypoattenuation is noted throughout the brain consistent with chronic small vessel disease. There is no midline shift, edema, acute hemorrhage, mass effect, or abnormal extra-axial fluid collections. Bones are unremarkable. There is a moderate right periorbital soft tissue swelling. Impression: No acute intracranial bleed, mass effect or edema. Mild atrophy of the brain. Nonspecific white matter hypoattenuation probably due to chronic small vessel disease. The CT scanner at [facility] is accredited by the [employer] and the scans are performed using dose optimization techniques as appropriate to a performed exam including Automatic Exposure control.
--- NOTE | 2019-07-28 13:07 | Diagnostic Imaging Report ---
Indication: Orbital and maxillofacial trauma and pain Technique: Continuous helical transaxial imaging of the orbits/maxillofacial structures obtained without intravenous contrast administration. Coronal 2-D reformats were also obtained. Study obtained in a Siemens sensation [address] Automatic Exposure Control was utilized. Total Dose length Product (DLP): [address] Dose Index Volume (CTDIvol): 28.19 mGy Comparison: None Findings: There is no evidence of an acute fracture. Paranasal sinuses and mastoids are clear. The bones are osteopenic. There is right periorbital soft tissue swelling that extends to above the orbits in the right frontal region. Impression: Right periorbital/frontal soft tissue contusion. No acute fracture The CT scanner at [facility] is accredited by the [employer] and the scans are performed using dose optimization techniques as appropriate to a performed exam including Automatic Exposure control.
--- NOTE | 2019-07-28 13:09 | Diagnostic Imaging Report ---
Indication: Cervical trauma/pain. Technique: Continuous helical imaging of the cervical spine was obtained transaxially from the skull base to the upper thoracic spine. 2-D coronal and sagittal reformatted images were obtained. Automatic Exposure Control was utilized. Total Dose length Product (DLP): 227.[address] Dose Index Volume (CTDIvol): 9.65 mGy Comparison: None Findings: There is multilevel narrowing of intervertebral disks and extensive hypertrophic vertebral endplate, uncovertebral osteophyte formation. Alignment is normal. There is no acute fracture or soft tissue swelling or other signs of acute injury. The bones are osteopenic. Scattered arterial calcifications are present consistent with atherosclerotic vascular disease. Small nodes in the neck noted. IMPRESSION: No acute injury identified. Moderate degenerative spondylosis as described above The CT scanner at [facility] is accredited by the [employer] and the scans are performed using dose optimization techniques as appropriate to a performed exam including Automatic Exposure control.
--- NOTE | 2019-07-28 13:31 | Emergency Room Report ---
History of Present Illness General Chief Complaint: Multiple Trauma/Fall Source: Patient, Medical Record Present Illness HPI Disclaimer: Please note that this report is being documented using [employer] technology. This can lead to erroneous entry secondary to incorrect interpretation by the dictating instrument. HPI: This 83-year-old female with a history of dementia presenting from a nursing facility after being found on the ground. She has an apparent facial contusion. She cannot provide any significant history which is reportedly her baseline. She is somewhat tangential though states she is in no pain. Notes swelling and tenderness over the right cheek and swelling of the eyelids but denies any blurred vision, headache, neck pain. She cannot recall why she fell exactly but does not believe she syncopized. Cannot say whether or not she has an anticoagulants. Patient was admitted for syncopal episode in the past which was attributed to dehydration and volume depletion. She has no acute complaints other than swelling and tenderness over the face at this time. Denies chest pain, shortness of breath, vomiting, diarrhea, recent fever or illness. PMH: Diabetes, hypertension, dementia, CVA, psychiatric illness PSH: See chart Allergies: None listed Social Hx: Cannot obtain from patient Allergies: Coded Allergies: No Known Allergies (Unverified , 07/17/19) Patient History Now: No Nursing Documentation-PMH Past Medical History: No History, Except For Hx Cardiac Problems: No Hx Hypertension: Yes Hx Diabetes: Yes Hx Cancer: No Hx Gastrointestinal Problems: No Hx Neurological Problems: No Review of Systems All Other Systems: negative except mentioned in HPI Physical Exam Vital Signs Date Time Temp Pulse Resp B/P (MAP) Pulse Ox O2 Delivery O2 Flow Rate FiO2 07/28/19 11:35 97.9 94 20 176/76 (109) 96 Room Air Right-sided facial to hematoma, right upper and eyelid swelling. Ecchymosis. Intact extraocular movements. General: Awake and alert, no acute distress HEENT: Normocephalic. There is ecchymosis and edema of the upper and lower eyelids with right-sided periorbital swelling and a hematoma over the right protestant. No overlying skin breakdown or bleeding. Tenderness over the right maxilla and over the right temporal bone. EOMI. PERRLA. No septal hematoma. No malocclusion Neck: Supple, trachea midline. Arrives without cervical collar Chest Wall: No tenderness, no deformity, no crepitus CV: RRR. S1 and S2 normal. No murmur appreciated Resp: Normal work of breathing. No cough, wheezing or crackles appreciated Abd: Soft, nontender, nondistended Skin: Intact. No abrasions, laceration or rash over the exposed skin MSK: Normal tone and bulk. No obvious deformity. Moving all extremities. Ambulating without difficulty. Neuro: Awake and alert. Somewhat confused conversation and tangential although responding appropriately when prompted several times. Redirectable. Sensation is intact to light touch over the dermatomes of the upper and lower extremities Spine: There is no tenderness, step-off or deformity in the cervical, thoracic or lumbosacral spine. Medical Decision Making Diagnostic Impression: Primary Impression: Facial contusion Additional Impression: Fall ER Course Is an 83-year-old female presenting after she was found down at her assisted living facility with a right-sided facial contusion and hematoma. Concern for intracranial injury at this time. Will obtain CT scan of the head, facial bones and cervical spine. There is no open skin lack or abrasion. Laboratory Tests Test 07/28/19 11:50 White Blood Count 8.0 K/UL (4.8-10.8) Red Blood Count 4.27 M/UL (4.20-5.40) Hemoglobin 13.5 G/DL (12.0-16.0) Hematocrit 41.3 % (37.0-47.0) Mean Corpuscular Volume 97 FL (80-99) Mean Corpuscular Hemoglobin 31.5 PG (27.0-31.0) H Mean Corpuscular Hemoglobin Concent 32.6 G/DL (32.0-36.0) Red Cell Distribution Width 12.1 % (11.6-14.8) Platelet Count 225 K/UL (150-450) Mean Platelet Volume 6.0 FL (6.5-10.1) L Neutrophils (%) (Auto) 77.3 % (45.0-75.0) H Lymphocytes (%) (Auto) 16.3 % (20.0-45.0) L Monocytes (%) (Auto) 5.2 % (1.0-10.0) Eosinophils (%) (Auto) 0.4 % (0.0-3.0) Basophils (%) (Auto) 0.8 % (0.0-2.0) Sodium Level 142 MMOL/L (136-145) Potassium Level 4.7 MMOL/L (3.5-5.1) Chloride Level 104 MMOL/L (98-107) Carbon Dioxide Level 28 MMOL/L (21-32) Anion Gap 11 mmol/L (5-15) Blood Urea Nitrogen 25 mg/dL (7-18) H Creatinine 1.1 MG/DL (0.55-1.30) Estimate Glomerular Filtration Rate mL/min (>60) Glucose Level 188 MG/DL (74-106) H Calcium Level 9.5 MG/DL (8.5-10.1) Total Bilirubin 0.7 MG/DL (0.2-1.0) Aspartate Amino Transferase (AST) 28 U/L (15-37) Alanine Aminotransferase (ALT) 34 U/L (12-78) Alkaline Phosphatase 93 U/L (46-116) Troponin I 0.000 ng/mL (0.000-0.056) Total Protein 8.3 G/DL (6.4-8.2) H Albumin 4.0 G/DL (3.4-5.0) Globulin 4.3 g/dL Albumin/Globulin Ratio 0.9 (1.0-2.7) L EKG Diagnostic Results EKG Time: 12:00 Rate: normal Rhythm: NSR ST Segments: no acute changes Other Impression Sinus rhythm, normal axis, normal intervals, no acute ST segment changes. Rhythm Strip Diag. Results Rhythm Strip Time: 12:00 EP Interpretation: yes Rate: 80s Rhythm: NSR, no PVC's, no ectopy Reevaluation Time: 13:31 Last Vital Signs Date Time Temp Pulse Resp B/P (MAP) Pulse Ox O2 Delivery O2 Flow Rate FiO2 07/28/19 11:45 87 16 Room Air 07/28/19 11:45 97.9 166/70 99 Reevaluation Impression X-rays of the head, facial bones and cervical spine do not show any fracture or acute bleed. No other pathology noted. Patient's vision is intact and sore extraocular movements. Lab work-up returned largely within normal limits. She has refused a urinalysis and denies any urinary symptoms at this time. Unclear why she fell though she denies a syncopal episode. Her PMD was updated and agrees with sending her back to her nursing facility for reevaluation there as opposed to admission as there are no acute findings on imaging. Will discharge home and arrange transportation. She will follow with PMD. Disposition: XFER SNF Condition: Stable Referrals: Jacques Knight MD (PCP) Vincent Zepeda MD Jul 28, 2019 13:31
--- NOTE | 2019-07-28 13:31 | NUR ---
ED Nurse Note: Called Dr Knight and relayed lab and CT results to him. Dr Knight okay [facility].
--- NOTE | 2019-07-28 13:35 | NUR ---
ED Nurse Note: CALLED [facility] TO [facility]. ETA: [id number]
[2019-07-28 13:58] VITALS: BP 154/79
--- NOTE | 2019-07-28 14:53 | NUR ---
ED Nurse Note: Report given to HOLA Medina from SNF
--- NOTE | 2019-07-28 14:57 | NUR ---
ED Nurse Note: report given to collins breaux
[2019-07-28 15:01] VITALS: BP 148/68
--- NOTE | 2019-07-28 15:01 | NUR ---
Note marcialelis in EDM - 07/28/19 at 1502 by HOMERO ER DISCHARGE NOTE: Patient is cleared to be discharged per ERMD, pt is aox4, on room air, with stable vital signs. pt was given dc and prescription instructions, pt was able to verbalize understanding, pt id band and iv site removed without complications. pt is able to ambulate with steady gait. pt took all belongings.
--- NOTE | 2019-07-28 15:01 | NUR ---
ER DISCHARGE NOTE: Patient is cleared to be discharged per ERMD, pt is confused, on room air, with stable vital signs. pt was given dc and prescription instructions, pt was able to verbalize understanding, pt id band and iv site removed without complications. pt is able to ambulate with steady gait. pt took all belongings.
--- NOTE | 2019-07-30 13:11 | Cardiology Report ---
APPROVED REPORT EKG Measurement Heart [id number] Normal sinus rhythm with sinus arrhythmia Nonspecific ST and T wave abnormality Abnormal ECG
== END 2019-07-28 15:01 ==
LOC: EDBD 11:40 → EMR 13:17
DX: S00.83XA Contusion of other part of head, initial encounter (principal); I10 Essential (primary) hypertension; E11.9 Type 2 diabetes mellitus without complications; F03.90 Unspecified dementia, unspecified severity, without behavioral disturbance, psychotic disturbance, mood disturbance, and anxiety; Z86.73 Personal history of transient ischemic attack (TIA), and cerebral infarction without residual deficits; X58.XXXA Exposure to other specified factors, initial encounter; Y92.129 Unspecified place in nursing home as the place of occurrence of the external cause
CPT/HCPCS: 36415; 70450; 70486; 72125; 80053; 84484; 85025; 93005; 99284